=== PATIENT | female | born 2000 | race Caucasian/White ===

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

== ENCOUNTER 2021-05-04 07:10 | Emergency (ER) | payer BC ==
[2021-05-04 07:17] VITALS: RESP 18
--- NOTE | 2021-05-04 07:40 | ED ---
General Adult HPI - General Chief complaint: Abdominal Pain Stated complaint: Abd Pain, Vomiting Time Seen by Provider: 05/04/21 07:18 Source: patient Mode of arrival: ambulatory Limitations: no limitations - History of Present Illness Initial comments: Dictation was produced using TalkSession dictation software. please excuse any grammatical, word or spelling errors. Chief Complaint: 21-year-old female presents to the emergency department for abdominal pain History of Present Illness: The 21-year-old female she presents today with se veral months of abdominal pain. Patient has been having frequent episodes of abdominal pain. She states that she does not know of any inciting factors. States that typically it's exacerbated with oral intake but can occur spontaneously. She is scheduled for a HIDA scan next week. She reports that she has significant family history of gallbladder disease in her family. Patient denies any symptoms at this time. She states she gets frequent episodes on a daily basis. States that it's a sharp pain to her periumbilical area that lasts for minutes. She does have accompanying nausea and vomiting. She has not seen a GI doctor in the past. Patient takes oral contraceptives. She is however sexually active. No concerns of sexually transmitted disease. During one of these episodic attack she does have associated vomiting is nonbilious not bloody. She has no fevers. She denies any association of her symptoms with her menstrual cycle. She reports being at [facility] within the last month. She states she had CT and ultrasound images performed found to be negative. She was prescribed omeprazole however has not been compliant with this medication because she feels it is making her worse. The ROS documented in this emergency department record has been reviewed and confirmed by me. Those systems with pertinent positive or negative responses have been documented in the HPI. All other systems are other negative and/or noncontributory. PHYSICAL EXAM: General Impression: Alert and oriented x3, not in acute distress HEENT: Normocephalic atraumatic, extra-ocular movements intact, pupils equal and reactive to light bilaterally, mucous membranes moist. Cardiovascular: Heart regular rate and rhythm Chest: Able to complete full sentences, no retractions, no tachypnea Abdomen: abdomen soft, non-tender, non-distended, no organomegaly Musculoskeletal: Pulses present and equal in all extremities, no peripheral edema Motor: no focal deficits noted Neurological: CN II-XII grossly intact, no focal motor or sensory deficits noted Skin: Intact with no visualized rashes Psych: Normal affect and mood ED course: 21-year-old well-appearing female presents to the emergency d [facility] for persistent episodic abdominal pain that has been ongoing for the last several months. Vital signs upon arrival are within acceptable limits. Patient's well-appearing at bedside. She denies any symptoms currently. Laboratory evaluation obtained. CBC, metabolic panel is unremarkable. Urine is negative. Patient reevaluated at bedside at 9:30 AM found to be in stable medical condition. Patient told that she should follow-up with GI doctor. Patient prescription for Bentyl to try seafood improves her symptoms. Otherwise no high-risk features noted. Patient agreeable discharge. - Related Data Home Medications Medication Instructions Recorded Confirmed FLUoxetine HCL [PROzac] 20 mg PO HS 05/04/21 05/04/21 Norethindrone-E.estradiol-Iron 1 tab PO HS 05/04/21 05/04/21 [Junel Fe 1 mg-20 Mcg Tablet] atenoloL [Tenormin] 25 mg PO DAILY 05/04/21 05/04/21 hydroCHLOROthiazide [Hydrodiuril] 25 mg PO DAILY 05/04/21 05/04/21 ondansetron HCL [Zofran] 8 mg PO DAILY PRN 05/04/21 05/04/21 Previous Rx's Medication Instructions Recorded Dicyclomine [Bentyl] 10 mg PO QID PRN #24 capsule 05/04/21 Allergies Allergy/AdvReac Type Severity Reaction Status Date / Time No Known Allergies Allergy Verified 05/04/21 08:43 Review of Systems ROS Statement: Those systems with pertinent positive or pertinent negative responses have been documented in the HPI. ROS Other: All systems not noted in ROS Statement are negative. Past Medical History Past Medical History: Asthma, Hypertension History of Any Multi-Drug Resistant Organisms: None Reported Additional Past Surgical History / Comment(s): wisdom teeth Past Psychological History: Anxiety, Depression Smoking Status: Never smoker Past Alcohol Use History: Occasional Past Drug Use History: None Reported General Exam Limitations: no limitations Course Vital Signs 05/04/21 05/04/21 07:13 08:51 Temperature 98.8 F Pulse Rate 92 72 Respiratory 18 18 Rate Blood Pressure 135/87 114/78 O2 Sat by Pulse 98 98 Oximetry Medical Decision Making - Lab Data Result diagrams: 05/04/21 07:42 05/04/21 07:42 Lab Results 05/04/21 05/04/21 05/04/21 Range/Units 07:29 07:42 07:42 WBC 7.6 (4.0-11.0) k/uL RBC 4.67 (3.80-5.40) m/uL Hgb 14.0 (11.4-16.0) gm/dL Hct 41.9 (34.0-46.0) % MCV 89.7 (80.0-100.0) fL MCH 30.0 (25.0-35.0) pg MCHC 33.5 (31.0-37.0) g/dL RDW 14.6 (11.5-15.5) % Plt Count 282 (150-450) k/uL MPV 7.2 Neutrophils % 63 % Lymphocytes % 26 % Monocytes % 4 % Eosinophils % 5 % Basophils % 0 % Neutrophils # 4.8 (1.3-7.7) k/uL Lymphocytes # 2.0 (1.0-4.8) k/uL Monocytes # 0.3 (0-1.0) k/uL Eosinophils # 0.4 (0-0.7) k/uL Basophils # 0.0 (0-0.2) k/uL Sodium 137 (137-145) mmol/L Potassium 4.0 (3.5-5.1) mmol/L Chloride 105 (98-107) mmol/L Carbon Dioxide 20 L (22-30) mmol/L Anion Gap 12 mmol/L BUN 14 (7-17) mg/dL Creatinine 0.69 (0.52-1.04) mg/dL Est GFR (CKD-EPI)AfAm >90 (>60 ml/min/1.73 sqM) Est GFR (CKD-EPI)NonAf >90 (>60 ml/min/1.73 sqM) Glucose 107 H (74-99) mg/dL Calcium 9.2 (8.4-10.2) mg/dL Total Bilirubin 0.4 (0.2-1.3) mg/dL AST 28 (14-36) U/L ALT 21 (4-34) U/L Alkaline Phosphatase 66 (38-126) U/L Total Protein 7.4 (6.3-8.2) g/dL Albumin 4.3 (3.5-5.0) g/dL Lipase 63 (23-300) U/L Urine HCG, Qual Not Detected (Not Detectd) Disposition Clinical Impression: Abdominal pain Disposition: HOME SELF-CARE Condition: Good Instructions (If sedation given, give patient instructions): Abdominal Pain (ED) Prescriptions: Dicyclomine [Bentyl] 10 mg PO QID PRN #24 capsule PRN Reason: abdominal spasm Is patient prescribed a controlled substance at d/c from ED?: No Referrals: Marylou King DO [Primary Care Provider] - 1-2 days Taryn Castillo MD [STAFF PHYSICIAN] - 1-2 days
[2021-05-04 07:55] LABS: Basophils % (A) 0 %; Eosinophils # (A) 0.4 k/uL (0-0.7); Eosinophils % (A) 5 %; HCT 41.9 % (34.0-46.0); Lymphocytes % (A) 26 %; MCHC 33.5 g/dL (31.0-37.0); MCV 89.7 fL (80.0-100.0); Mean Platelet Volume 7.2; Monocytes # (A) 0.3 k/uL (0-1.0); Monocytes % (A) 4 %; Neutrophils # (A) 4.8 k/uL (1.3-7.7); Neutrophils % (A) 63 %; Platelet Count 282 k/uL (150-450); RBC 4.67 m/uL (3.80-5.40); RDW 14.6 % (11.5-15.5); WBC 7.6 k/uL (4.0-11.0)
[2021-05-04 08:04] LABS: ALT 21 U/L (4-34); AST 28 U/L (14-36); African American GFR (CKD) >90 (>60 ml/min/1.73 sqM); Albumin 4.3 g/dL (3.5-5.0); Alkaline Phosphatase 66 U/L (38-126); Anion Gap 12 mmol/L; Blood Urea Nitrogen 14 mg/dL (7-17); Calcium 9.2 mg/dL (8.4-10.2); Carbon Dioxide 20 mmol/L (22-30); Chloride 105 mmol/L (98-107); Glucose 107 mg/dL (74-99); Lipase 63 U/L (23-300); Non-African American GFR(CKD) >90 (>60 ml/min/1.73 sqM); Sodium 137 mmol/L (137-145); Total Bilirubin 0.4 mg/dL (0.2-1.3); Total Protein 7.4 g/dL (6.3-8.2)
[2021-05-04 09:36] VITALS: BP 123/84; PULSE 65; TEMP 97.8
== END 2021-05-04 09:34 | disposition home or self-care (01) ==
LOC: EC 07:10
DX: R10.9 Unspecified abdominal pain (principal); R11.2 Nausea with vomiting, unspecified; I10 Essential (primary) hypertension; J45.909 Unspecified asthma, uncomplicated; Z79.899 Other long term (current) drug therapy
CPT/HCPCS: 36415; 80053; 81025; 83690; 85025; 99284

== ENCOUNTER → 2021-05-11 | Outpatient (CLI) | payer BC ==
--- NOTE | 2021-05-11 15:21 | NM ---
EXAMINATION TYPE: NM hepatobiliary w EF DATE OF EXAM: 05/11/2021 COMPARISON: 10/17/2018 INDICATION: Diarrhea generalized abdominal pain TECHNIQUE: After the intravenous administration of 4.26 mCi Tc 99m Mebrofenin hepatobiliary scintigra phy is performed. Images were obtained immediately post injection. FINDINGS: There is prompt uptake and excretion of radiotracer by the liver. Extrahepatic ducts are identified at 6 minutes. The gallbladder is visualized within 12 minutes. Small bowel activity is noted within 8 minutes. At one hour 8 ounces of oral ensure plus is given to mimic CCK and gallbladder ejection fraction is c alculated at 82 %, which is elevated. (Normal >35% and <80%.). Correlate for biliary hyperkinesia. IMPRESSION: 1. Clinical correlation for biliary hyperkinesia is recommended. 2. No obstruction evident
== END | disposition home or self-care (01) ==
LOC: RADNMMAIN 12:59
PROVIDERS: ATTEND Physician Assistant Medical
DX: R19.7 Diarrhea, unspecified (principal); R10.84 Generalized abdominal pain
CPT/HCPCS: 78226; A9537

== ENCOUNTER → 2022-11-30 | Day surgery (SDC) | payer BC ==
--- NOTE | 2022-12-13 08:03 | USB ---
Pathology Description: Location: 8 o'clock. Needle Type: Mammotome Cores: 5 Skin Nicks: 1 Gauge: 13 The procedure of ultrasound guided core biopsy was explained to the patient. Benefits, alternatives, and risks were discussed. An informed consent was then obtained. A timeout was performed. The patient was placed in supine positioning for imaging and for the procedure. The overlying skin was prepped and draped in usual sterile fashion. Lidocaine was used as anesthetic into the skin and subcutaneous tissue up to area of concern in the right breast. A small skin sai was made with surgical scalpel. Under ultrasound guidance, a 12-gauge vacuum assisted biopsy gun device was used to obtain 5 core samples. A biopsy clip was left in lesion. Hydromark core butterfly marker was placed. The patient tolerated the procedure well without any immediate complication. The patient was kept in the radiology department for short stay after the procedure and then discharged home in stable condition. Postprocedure mammogram: The patient was transferred to mammography for physician ordered post procedure mammogram for clip placement verification. Impression: Successful ultrasound guided core biopsy of area of concern in the right breast, full pathology results to follow. Recommendations: 1. Recommendations are pending pathology results. Pathology Results: Result: Benign, Fibroadenoma. RIGHT BREAST, EIGHT O'CLOCK, ULTRASOUND GUIDED NEEDLE CORE BIOPSY: Fibroadenoma. Overall Assessment: Benign Management: Diagnostic Breast Ultrasound of the right breast in 6 months. Electronically signed and approved by: Wesley Raphael D.O. Radiologis
== END ==
LOC: RADUSWWP 07:48
PROVIDERS: ATTEND Surgery
DX: D24.1 Benign neoplasm of right breast (principal)
CPT/HCPCS: 88305; 19083; A4648

== ENCOUNTER → 2022-12-16 | Outpatient (CLI) | payer BC ==
[2022-12-16 09:26] VITALS: BP 129/84; PULSE 73; RESP 16; TEMP 97.9
--- NOTE | 2022-12-16 09:52 | P.GSHP ---
History of Present Illness H&P Date: 12/16/22 Frances is a 22 year old female seen in consultation for Dr. King regarding a fibroadenoma in her right breast. Patient states 2 years ago she felt a lump in her right breast. The patient states that his increased in size. It is not painful. She underwent a core biopsy of the 1.5 cm lesion of the right breast on and pathology was consistent with a fibroadenoma. She has not had any other breast imaging performed. She does not feel any other lumps masses or nodules of concern in her breast. She has not had any surgery on her breast. She's not had any recent trauma or infection of the breast. He does have a history of hidradenitis under both breasts and in the axilla. This is also present in the groin area. The nodule in the breast is causing distress for the patient as it is clearly palpable and she feels it has increased in size. Caffeine: pop several times/week nictine: none chocolate: occasional BCP: currently on them used for about 9 years Family history: maternal grandmother: breast cancer maternal aunt: breast cancer 2 paternal great aunts: breast cancer maternal grandfather: skin cancer paternal grandfather: skin cancer maternal great aunt: ovarian cancer Hormonal History: menarche: 12 G1A1 periods regular; LMP: last week Past surgical history: Cholecystectomy Was taken to remove Medical history: HTN pre-daibetic anxiety/depression asthma Hidradenitis supratevia Social history: Nicotine: Negative Alcohol: Periodically Drugs: Marijuana dailyh - Constitutional Constitutional: Denies chills, Denies fever - EENT Eyes: denies blurred vision, denies pain Ears: deny: decreased hearing, tinnitus Ears, nose, mouth and throat: Denies headache, Denies sore throat - Breasts Breasts: bilateral: as per HPI - Cardiovascular Cardiovascular: Denies chest pain, Denies shortness of breath - Respiratory Respiratory: Denies cough, Denies 7 - Gastrointestinal Gastrointestinal: Denies abdominal pain, Denies diarrhea, Denies nausea, Denies vomiting - Genitourinary (Female) Genitourinary: Denies dysuria, Denies hematuria - Menstruation Menstruation: Reports period normal - Musculoskeletal Musculoskeletal: Denies myalgias - Integumentary Integumentary: Denies pruritus, Denies rash - Neurological Neurological: Denies numbness, Denies weakness - Psychiatric Psychiatric: Reports anxiety, Reports depression - Endocrine Endocrine: Denies fatigue, Denies weight change - Hematologic/Lymphatic Comment: none - Allergic/Immunologic Allergic/Immunologic: Reports seasonal allergies Past Medical History Past Medical History: Asthma, Hypertension Additional Past Medical History / Comment(s): pre-diabetic History of Any Multi-Drug Resistant Organisms: None Reported Past Surgical History: Cholecystectomy Additional Past Surgical History / Comment(s): wisdom teeth Past Anesthesia/Blood Transfusion Reactions: No Reported Reaction Past Psychological History: Anxiety, Depression Smoking Status: Never smoker Past Alcohol Use History: Occasional Past Drug Use History: Marijuana Medications and Allergies Home Medications Medication Instructions Recorded Confirmed Type atenoloL [Tenormin] 50 mg PO DAILY 05/04/21 12/16/22 History norethindrone-e.estradioL-iron 1 tab PO HS 05/04/21 12/16/22 History [Junel Fe 1 mg-20 Mcg Tablet] Famotidine [Pepcid] 10 mg PO DAILY 11/17/22 12/16/22 History Semaglutide [Ozempic] 0.25 mg SQ WEEKLY 11/17/22 12/16/22 History PARoxetine [Paxil] 20 mg PO DAILY 12/16/22 12/16/22 History Allergies Allergy/AdvReac Type Severity Reaction Status Date / Time No Known Allergies Allergy Verified 12/16/22 09:21 Surgical - Exam Vital Signs Temp Pulse Resp BP Pulse Ox 97.9 F 73 16 129/84 97 12/16/22 09:22 12/16/22 09:22 12/16/22 09:22 12/16/22 09:22 12/16/22 09:22 - General no distress - Eyes normal ocular movement - ENT no hearing loss - Neck trachea midline - Respiratory normal respiratory effort - Cardiovascular Rhythm: regular Heart Sounds: normal: S1, S2 - Abdomen Abdomen: soft, non tender, no guarding, no rigid, no rebound - Integumentary normal turgor - Neurologic no disoriented, no combative - Musculoskeletal normal gait, normal posture - Psychiatric oriented to time, oriented to person, oriented to place, speech is normal, memory intact Breast Exam: BRA: 38D Inspection: Bilateral grade 2/3 ptosis Palpation: Right breast: Multiple positional exam fibrocystic changes, hydroadenitis in the axilla and over the lateral aspect of the breast, approximately 1.2 cm palpable fibroadenoma in the periareolar region at 9:00 Right axilla: Changes of hidradenitis no adenopathy of concern Left breast: Multiple positional exam fibrocystic changes no dominant masses or nodules of concern Left axilla: Hidradenitis in the axilla no dominant masses or nodules of concern Results Ultrasound reviewed Assessment and Plan Assessment: Impression: HTN pre-daibetic anxiety/depression asthma Hidradenitis supratevia Symptomatically breast fibroadenoma Plan: Removal of symptomatic palpable right breast fibroadenoma Cc: Chelly Bautista
== END ==
LOC: WWCWWP 08:40
PROVIDERS: ATTEND Surgery
DX: D24.1 Benign neoplasm of right breast (principal); F32.A Depression, unspecified; F41.9 Anxiety disorder, unspecified; I10 Essential (primary) hypertension; J45.909 Unspecified asthma, uncomplicated; L73.2 Hidradenitis suppurativa; Z79.899 Other long term (current) drug therapy; Z80.3 Family history of malignant neoplasm of breast; Z90.49 Acquired absence of other specified parts of digestive tract; R73.09 Other abnormal glucose

== ENCOUNTER → 2023-03-29 | Outpatient (CLI) | payer BC ==
[2023-03-29 12:29] VITALS: BP 116/80; PULSE 74; RESP 18; TEMP 97.9
--- NOTE | 2023-03-29 12:39 | P.PN ---
Subjective Progress Note Date: 03/29/23 Principal diagnosis: right breast fibroadenoma History of Present Illness H&P Date: 12/16/22 Frances is a 23 year old female seen in consultation for Dr. King regarding a fibroadenoma in her right breast. Patient states 2 years ago she felt a lump in her right breast. The patient states that his increased in size. It is not painful. She underwent a core biopsy of the 1.5 cm lesion of the right breast on and pathology was consistent with a fibroadenoma. She has not had any other breast imaging performed. She does not feel any other lumps masses or nodules of concern in her breast. She has not had any surgery on her breast. She's not had any recent trauma or infection of the breast. She does have a history of hidradenitis under both breasts and in the axilla. This is also present in the groin area. The nodule in the breast is causing distress for the patient as it is clearly palpable and she feels it has increased in size. Caffeine: pop several times/week nictine: none chocolate: occasional BCP: currently on them used for about 9 years Family history: maternal grandmother: breast cancer maternal aunt: breast cancer 2 paternal great aunts: breast cancer maternal grandfather: skin cancer paternal grandfather: skin cancer maternal great aunt: ovarian cancer Hormonal History: menarche: 12 G1A1 periods regular; LMP: last week Past surgical history: Cholecystectomy Was taken to remove Medical history: HTN pre-daibetic anxiety/depression asthma Hidradenitis supratevia Social history: Nicotine: Negative Alcohol: Periodically Drugs: Marijuana dailyh - Constitutional Constitutional: Denies chills, Denies fever - EENT +++Eyes: denies blurred vision, denies pain Ears: deny: decreased hearing, tinnitus Ears, nose, mouth and throat: Denies headache, Denies sore throat - Breasts Breasts: bilateral: as per HPI - Cardiovascular Cardiovascular: Denies chest pain, Denies shortness of breath - Respiratory Respiratory: Denies cough - Gastrointestinal Gastrointestinal: Denies abdominal pain, Denies diarrhea, Denies nausea, Denies vomiting - Genitourinary (Female) Genitourinary: Denies dysuria, Denies hematuria - Menstruation Menstruation: Reports period normal - Musculoskeletal Musculoskeletal: Denies myalgias - Integumentary Integumentary: Denies pruritus, Denies rash - Neurological Neurological: Denies numbness, Denies weakness - Psychiatric Psychiatric: Reports anxiety, Reports depression - Endocrine Endocrine: Denies fatigue, Denies weight change - Hematologic/Lymphatic Comment: none - Allergic/Immunologic Allergic/Immunologic: Reports seasonal allergies Past Medical History Past Medical History: Asthma, Hypertension Additional Past Medical History / Comment(s): pre-diabetic History of Any Multi-Drug Resistant Organisms: None Reported Past Surgical History: Cholecystectomy Additional Past Surgical History / Comment(s): wisdom teeth Past Anesthesia/Blood Transfusion Reactions: No Reported Reaction Past Psychological History: Anxiety, Depression Smoking Status: Never smoker Past Alcohol Use History: Occasional Past Drug Use History: Marijuana Medications and Allergies Home Medications Medication Instructions Recorded Confirmed Type atenoloL [Tenormin] 50 mg PO DAILY 05/04/21 12/16/22 History norethindrone-e.estradioL-iron 1 tab PO HS 05/04/21 12/16/22 History [Junel Fe 1 mg-20 Mcg Tablet] Famotidine [Pepcid] 10 mg PO DAILY 11/17/22 12/16/22 History Semaglutide [Ozempic] 0.25 mg SQ WEEKLY 11/17/22 12/16/22 History PARoxetine [Paxil] 20 mg PO DAILY 12/16/22 12/16/22 History Allergies Allergy/AdvReac Type Severity Reaction Status Date / Time No Known Allergies Allergy Verified 12/16/22 09:21 - Objective - Vital Signs Vital signs: Vital Signs Temp 97.9 F 03/29/23 12:24 Pulse 74 03/29/23 12:24 Resp 18 03/29/23 12:24 BP 116/80 03/29/23 12:24 Pulse Ox 98 03/29/23 12:24 FiO2 Intake & Output 03/28/23 03/29/23 03/29/23 18:59 06:59 18:59 Weight 111.13 kg - Constitutional General appearance: Present: cooperative - EENT Eyes: Present: EOMI ENT: Present: hearing grossly normal - Neck Neck: Present: normal ROM - Respiratory Respiratory: bilateral: CTA - Cardiovascular Heart sounds: normal: S1, S2 - Integumentary Integumentary: Present: normal turgor - Musculoskeletal Musculoskeletal: Present: gait normal - Psychiatric Psychiatric: Present: A&O x's 3, appropriate affect, intact judgment & insight - Additional findings Additional findings: Breast Exam: BRA: 38D Inspection: Bilateral grade 2/3 ptosis Palpation: Right breast: Multiple positional exam fibrocystic changes, hydroadenitis in the axilla and over the lateral aspect of the breast, approximately 1.2 cm palpable fibroadenoma in the periareolar region at 9:00 Right axilla: Changes of hidradenitis no adenopathy of concern Left breast: Multiple positional exam fibrocystic changes no dominant masses or nodules of concern Left axilla: Hidradenitis in the axilla no dominant masses or nodules of concern Assessment and Plan Assessment: Impression: HTN pre-daibetic anxiety/depression asthma Hidradenitis supratevia Symptomatic right breast fibroadenoma Plan: Removal of symptomatic palpable right breast fibroadenoma Cc: Chelly Bautista
== END ==
LOC: WWCWWP 12:17
PROVIDERS: ATTEND Surgery
DX: D24.1 Benign neoplasm of right breast (principal); F32.A Depression, unspecified; J45.909 Unspecified asthma, uncomplicated; L73.2 Hidradenitis suppurativa; E11.9 Type 2 diabetes mellitus without complications; F41.9 Anxiety disorder, unspecified; Z80.3 Family history of malignant neoplasm of breast

== ENCOUNTER → 2023-04-04 | Day surgery (SDC) | payer BC ==
[2023-03-29 17:54] VITALS: BMI 43.4
[~2023-04-04] MED LIST: DEXAMETHASONE SOD PHOSPHATE 4 MG/ML 1 ML VIAL IV ONE; HEPARIN SODIUM,PORCINE/PF 5,000 UNIT/0.5 ML SYRINGE SQ PRN; HYDROmorphone (PF) 1 MG/ML ONE; HYDROmorphone 0.5 MG/0.5 ML SYRINGE IVP PRN; LACTATED RINGERS 1,000 ML IV ONE; LACTATED RINGERS 1,000 ML IV SCH; LIDOCAINE 2% INJ 20 MG/ML (2 ML VIAL) ONE; MIDAZOLAM 2 MG/2 ML VIAL IV PRN; MIDAZOLAM 2 MG/2 ML VIAL ONE; ONDANSETRON 4 MG/2 ML VIAL IVP ONE; PROPOFOL 10 MG/ML 20 ML VIAL IV ONE; SCOPOLAMINE 1 MG/72 HR PATCH TRANSDERM ONE; SUCCINYLCHOLINE CHLORIDE 200 MG/10 ML VIAL IV ONE; fentaNYL (PF) 50 MCG/ML 2 ML AMP ONE
[2023-04-04 07:48] LABS: Glucose,Whole Blood 108 mg/dL (70-110)
--- NOTE | 2023-04-04 09:24 | P.OP ---
Date of Procedure: 04/04/23 Preoperative Diagnosis: Symptomatic right breast fibroadenoma Postoperative Diagnosis: Same Procedure(s) Performed: Excision of palpable right breast fibroadenoma Anesthesia: SILVANOA Surgeon: Shirin Cain Estimated Blood Loss (ml): 3 IV fluids (ml): 300 Pathology: other (right breast lesion/fibroadenoma) Condition: stable Disposition: same day Indications for Procedure: Symptomatic right breast fibroadenoma Operative Findings: Right breast fibroadenoma Description of Procedure: The patient was brought to the operative suite and following induction of anesthesia the right breast was prepped and draped in a sterile fashion. Circumareolar incision was made and carried down to the palpable abnormality. Wide excision was performed. The fibroadenoma was approximately 1-1/2 cm in size. Following this the cavity was well irrigated. The area was marked using a titanium clip. The tissues were closed using 3-0 Vicryl suture. Subcutaneous tissue was closed using 3-0 Vicryl suture. The skin was closed using 4-0 Monocryl. Steri-Strips were applied. The patient tolerated the procedure in stable condition. All instrument and sponge counts were correct at the end of the case. The specimen was painted for orientation.
--- NOTE | 2023-04-04 09:26 | P.DS ---
Providers Attending physician: Shirin Cain Primary care physician: Marylou King Plan - Discharge Summary Discharge Rx Participant: Yes New Discharge Prescriptions: No Action atenoloL [Tenormin] 50 mg PO DAILY PARoxetine [Paxil] 20 mg PO DAILY Famotidine [Pepcid] 10 mg PO DAILY Discharge Medication List atenoloL [Tenormin] 50 mg PO DAILY 05/04/21 [History] Famotidine [Pepcid] 10 mg PO DAILY 11/17/22 [History] PARoxetine [Paxil] 20 mg PO DAILY 12/16/22 [History] Follow up Appointment(s)/Referral(s): Shirin Cain MD [STAFF PHYSICIAN] - 1 Week Patient Instructions/Handouts: *Surgery [facility] - (Anesthesia) Discharge Instructions Outpatient Surgery, *Surgery [facility] - Scopalamine Patch Instructions Activity/Diet/Wound Care/Special Instructions: do not drive for 24 hours from discharge or if taking narcotic pain medicine may shower after 48 hours wear bra at all times Discharge Disposition: HOME SELF-CARE
[2023-04-04 09:35] VITALS: TEMP 97
[2023-04-04 09:45] VITALS: RESP 14
[2023-04-04 10:44] VITALS: BP 125/85; PULSE 110
== END | disposition home or self-care (01) ==
LOC: OR 07:14
PROVIDERS: ATTEND Surgery
DX: D24.1 Benign neoplasm of right breast (principal); I10 Essential (primary) hypertension; K21.9 Gastro-esophageal reflux disease without esophagitis; R73.03 Prediabetes; J45.909 Unspecified asthma, uncomplicated; F41.9 Anxiety disorder, unspecified; F32.A Depression, unspecified; Z90.49 Acquired absence of other specified parts of digestive tract; Z80.3 Family history of malignant neoplasm of breast; Z80.41 Family history of malignant neoplasm of ovary; F12.90 Cannabis use, unspecified, uncomplicated
CPT/HCPCS: 81025; 88305; 19120; J2250; J0330; J1100; J0690; J2405; J3010; J1170; J2704; J1644; J2001

== ENCOUNTER → 2023-04-13 | Outpatient (CLI) | payer BC ==
--- NOTE | 2023-04-13 14:19 | P.PN ---
Progress Note - Text Progress Note Date: 04/13/23 The patient is status is status post resection of fibroadenoma on 04-04-23. She has done well post op. Examination: Incision: Clean and dry Impression: Status post excision of fibroadenoma Plan: Follow up in 6 months for repeat right breast ultrasound CC: Chelly Bautista
== END ==
LOC: WWCWWP 13:58
PROVIDERS: ATTEND Surgery
DX: Z04.89 Encounter for examination and observation for other specified reasons (principal); Z86.018 Personal history of other benign neoplasm

== ENCOUNTER → 2023-07-10 | Outpatient (CLI) | payer BC | END | disposition home or self-care (01) | LOC: LABWHC1 10:21 | PROVIDERS: ATTEND Obstetrics & Gynecology Obstetrics | DX: O20.0 Threatened abortion (principal); Z3A.00 Weeks of gestation of pregnancy not specified | CPT/HCPCS: 36415; 84702; 86850; 86900; 86901 ==

== ENCOUNTER → 2023-07-12 | Outpatient (CLI) | payer BC | END | disposition home or self-care (01) | LOC: LABWHC1 10:52 | PROVIDERS: ATTEND Obstetrics & Gynecology Obstetrics | DX: O20.9 Hemorrhage in early pregnancy, unspecified (principal); O20.0 Threatened abortion; Z3A.00 Weeks of gestation of pregnancy not specified | CPT/HCPCS: 36415; 84144; 84702 ==

== ENCOUNTER 2023-08-01 06:57 | Emergency (ER) | payer BC ==
--- NOTE | 2023-08-01 07:02 | ED ---
General Adult HPI - General Stated complaint: 8 wk preg N/V Vaginal Bleeding Time Seen by Provider: 08/01/23 06:59 Source: patient, RN notes reviewed Mode of arrival: ambulatory Limitations: no limitations - History of Present Illness Initial comments: This a 23-year-old female presents emergency Department with chief complaint vaginal bleeding early . Patient states that she is also having associated nausea vomiting. Patient states she feels dehydrated. Patient st ates her bleeding started late but is noted to have some clots now. Patient is A1. Patient states she is seen Dr. Fonseca. - Related Data Home Medications Medication Instructions Recorded Confirmed atenoloL [Tenormin] 50 mg PO DAILY 05/04/21 03/29/23 Famotidine [Pepcid] 10 mg PO DAILY 11/17/22 03/29/23 PARoxetine [Paxil] 20 mg PO DAILY 12/16/22 03/29/23 Allergies Allergy/AdvReac Type Severity Reaction Status Date / Time No Known Allergies Allergy Verified 08/01/23 07:08 Review of Systems ROS Statement: Those systems with pertinent positive or pertinent negative responses have been documented in the HPI. ROS Other: All systems not noted in ROS Statement are negative. Past Medical History Past Medical History: Asthma, Hypertension Additional Past Medical History / Comment(s): pre-diabetic History of Any Multi-Drug Resistant Organisms: None Reported Past Surgical History: Cholecystectomy Additional Past Surgical History / Comment(s): wisdom teeth Past Anesthesia/Blood Transfusion Reactions: No Reported Reaction Smoking Status: Never smoker General Exam - General Exam Comments Initial Comments: Visual Physical Exam Vital signs reviewed General: Well-appearing, nontoxic, no acute distress. Head: Normocephalic, atraumatic Eyes: PERRLA, EOMI ENT: Airway patent Chest: Nonlabored breathing Skin: No visual rash, normal skin tone Neuro: Alert and oriented 3 Musculoskeletal: No gross abnormalities Limitations: no limitations General appearance: alert, in no apparent distress Head exam: Present: atraumatic, normocephalic, normal inspection Eye exam: Present: normal appearance, PERRL, EOMI. Absent: scleral icterus, conjunctival injection, periorbital swelling ENT exam: Present: normal exam, normal oropharynx, mucous membranes moist Neck exam: Present: normal inspection, full ROM. Absent: tenderness, meningismus, lymphadenopathy Respiratory exam: Present: normal lung sounds bilaterally. Absent: respiratory distress, wheezes, rales, rhonchi, stridor Cardiovascular Exam: Present: regular rate, normal rhythm, normal heart sounds. Absent: systolic murmur, diastolic murmur, rubs, gallop, clicks GI/Abdominal exam: Present: soft, tenderness, normal bowel sounds. Absent: distended, guarding, rebound, rigid Course Vital Signs 08/01/23 08/01/23 07:06 08:47 Temperature 98.5 F Pulse Rate 97 79 Respiratory 18 18 Rate Blood Pressure 135/90 121/75 O2 Sat by Pulse 99 98 Oximetry Medical Decision Making - Medical Decision Making I completed the quick note portion of this chart signed Beau Holt PA-C Was pt. sent in by a medical professional or institution ([facility], PREPPER, urgent care, hospital, or custodial...) When possible be specific @ -No Did you speak to anyone other than the patient for history (EMS, parent, family, police, friend...)? What history was obtained from this source @ -No Did you review nursing and triage notes (agree or disagree)? Why? @ -I reviewed and agree with nursing and triage notes Were old charts reviewed (outside hosp., previous admission, EMS record, old EKG, old radiological studies, urgent care reports/EKG's, custodial records)? Report findings @ -No old charts were reviewed Differential Diagnosis (chest pain, altered mental status, abdominal pain women, abdominal pain men, vaginal bleeding, weakness, fever, dyspnea, syncope, headache, dizziness, GI bleed, back pain, seizure, CVA, palpatations, mental health, musculoskeletal)? @ -Differential Vaginal Bleeding: Spontaneous , threatened , molar , ectopic , bloody show, incompetent cervix, abruptioplacenta, placenta previa, uterine rupture, dysfunctional uterine bleeding, hemorrhage, uterine fibroids, this is not meant to be an all-inclusive list.l EKG interpreted by me (3pts min.). @ -None X-rays interpreted by me (1pt min.). @ -None done CT interpreted by me (1pt min.). @ -None done U/S interpreted by me (1pt. min.). @ -Ultrasound shows intrauterine 8 weeks 1 day with heart rate of 172 What testing was considered but not performed or refused? (CT, X-rays, U/S, labs)? Why? @ -None What meds were considered but not given or refused? Why? @ -None Did you discuss the management of the patient with other professionals (professionals i.e. , PA, PREPPER, lab, RT, psych nurse, social media project manager, scuba instructor, teacher, student officer, residential case manager)? Give summary @ -No Was smoking cessation discussed for >3mins.? @ -No Was critical care preformed (if so, how long)? @ -No Were there social determinants of health that impacted care today? How? (Homelessness, low income, unemployed, alcoholism, drug addiction, transportation, low edu. Level, literacy, decrease access to med. care, skilled nursing, rehab)? @ -No Was there de-escalation of care discussed even if they declined (Discuss DNR or withdrawal of care, Hospice)? DNR status @ -No What co-morbidities impacted this encounter? (DM, HTN, Smoking, COPD, CAD, Cancer, CVA, ARF, Chemo, Hep., AIDS, mental health diagnosis, sleep apnea, morbid obesity)? @ -None Was patient admitted / discharged? Hospital course, mention meds given and route, prescriptions, significant lab abnormalities, going to OR and other pertinent info. 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 @ -No Drug Therapy requiring intensive monitoring for toxicity (Heparin, Nitro, Insulin, Cardizem)? @ -No Were any procedures done? @ -No Diagnosis/symptom? @ -Vaginal bleeding , threatened miscarriage Acute, or Chronic, or Acute on Chronic? @ -[Acute Uncomplicated (without systemic symptoms) or Complicated (systemic symptoms)? @ -[Uncomplicated Side effects of treatment? @ -No Exacerbation, Progression, or Severe Exacerbation? @ -No Poses a threat to life or bodily function? How? (Chest pain, [place], [place], pneumonia, PE, COPD, DKA, ARF, appy, cholecystitis, CVA, Diverticulitis, Homicidal, Suicidal, threat to staff... and all critical care pts) @ -No - Lab Data Result diagrams: 08/01/23 08:44 08/01/23 08:44 Lab Results 08/01/23 08/01/23 08/01/23 Range/Units 08:44 08:44 08:44 WBC 10.8 H (3.8-10.6) k/uL RBC 4.49 (3.80-5.40) m/uL Hgb 13.2 (11.4-16.0) gm/dL Hct 38.6 (34.0-46.0) % MCV 86.2 (80.0-100.0) fL MCH 29.4 (25.0-35.0) pg MCHC 34.1 (31.0-37.0) g/dL RDW 13.2 (11.5-15.5) % Plt Count 314 (150-450) k/uL MPV 6.9 Neutrophils % 79 % Lymphocytes % 15 % Monocytes % 3 % Eosinophils % 3 % Basophils % 0 % Neutrophils # 8.5 H (1.3-7.7) k/uL Lymphocytes # 1.6 (1.0-4.8) k/uL Monocytes # 0.3 (0-1.0) k/uL Eosinophils # 0.3 (0-0.7) k/uL Basophils # 0.0 (0-0.2) k/uL Sodium 134 L (137-145) mmol/L Potassium 4.0 (3.5-5.1) mmol/L Chloride 104 (98-107) mmol/L Carbon Dioxide 19 L (22-30) mmol/L Anion Gap 11 mmol/L BUN 9 (7-17) mg/dL Creatinine 0.46 L (0.52-1.04) mg/dL Est GFR (CKD-EPI)AfAm >90 (>60 ml/min/1.73 sqM) Est GFR (CKD-EPI)NonAf >90 (>60 ml/min/1.73 sqM) Glucose 94 (74-99) mg/dL Calcium 9.4 (8.4-10.2) mg/dL Total Bilirubin 0.3 (0.2-1.3) mg/dL AST 22 (14-36) U/L ALT 18 (4-34) U/L Alkaline Phosphatase 62 (38-126) U/L Total Protein 7.3 (6.3-8.2) g/dL Albumin 4.0 (3.5-5.0) g/dL Urine Color Yellow Urine Appearance Cloudy H (Clear) Urine pH 5.5 (5.0-8.0) Ur Specific [place] 1.024 (1.001-1.035) Urine Protein Trace H (Negative) Urine Glucose (UA) Negative (Negative) Urine Ketones Negative (Negative) Urine Blood Large H (Negative) Urine Nitrite Negative (Negative) Urine Bilirubin Negative (Negative) Urine Urobilinogen <2.0 (<2.0) mg/dL Ur Leukocyte Esterase Large H (Negative) Urine RBC 20 H (0-5) /hpf Urine WBC 11 H (0-5) /hpf Ur Squamous Epith Cells 11 H (0-4) /hpf Urine Bacteria Rare H (None) /hpf Urine Mucus Few H (None) /hpf Disposition Clinical Impression: Vaginal bleeding in Disposition: HOME SELF-CARE Condition: Stable Instructions (If sedation given, give patient instructions): Threatened Mis carriage (ED) Additional Instructions: Please return to the Emergency Department if symptoms worsen or any other concerns. Is patient prescribed a controlled substance at d/c from ED?: No Referrals: Marylou King DO [Primary Care Provider] - 1-2 days Maisha Fonseca DO [Doctor of Osteopathic Medicine] - 1-2 days Time of Disposition: 10:05
[2023-08-01] MEDS ORDERED: ONDANSETRON 4 MG/2 ML VIAL IVP STA (07:17)
[2023-08-01] MEDS ORDERED: SODIUM CHLORIDE 0.9% 1,000 ML IV ONE (07:17)
[2023-08-01] MEDS ORDERED: SODIUM CHLORIDE 0.9% 500 ML 500 ML IV ONE (07:17)
[2023-08-01 08:57] LABS: Basophils % (A) 0 %; Eosinophils # (A) 0.3 k/uL (0-0.7); Eosinophils % (A) 3 %; HCT 38.6 % (34.0-46.0); HGB 13.2 gm/dL (11.4-16.0); Lymphocytes # (A) 1.6 k/uL (1.0-4.8); Lymphocytes % (A) 15 %; MCH 29.4 pg (25.0-35.0); MCHC 34.1 g/dL (31.0-37.0); MCV 86.2 fL (80.0-100.0); Mean Platelet Volume 6.9; Monocytes # (A) 0.3 k/uL (0-1.0); Monocytes % (A) 3 %; Neutrophils # (A) 8.5 k/uL (1.3-7.7); Neutrophils % (A) 79 %; Platelet Count 314 k/uL (150-450); RBC 4.49 m/uL (3.80-5.40); RDW 13.2 % (11.5-15.5); WBC 10.8 k/uL (3.8-10.6)
[2023-08-01 09:06] LABS: Appearance,Urine Cloudy (Clear); Bacteria,Urine Rare /hpf; Bilirubin,Urine Negative (Negative); Blood,Urine Large (Negative); Color,Urine Yellow; Glucose,Urine (UA) Negative (Negative); Ketones,Urine Negative (Negative); Leukocyte Esterase,Urine Large (Negative); Mucus,Urine Few /hpf; Nitrite,Urine Negative (Negative); PH, Urine 5.5 (5.0-8.0); Protein,Urine Trace (Negative); RBC,Urine 20 /hpf (0-5); Specific Gravity,Urine 1.024 (1.001-1.035); Squamous Epithelial Cell,Urine 11 /hpf (0-4); Urobilinogen,Urine <2.0 mg/dL (<2.0); WBC,Urine 11 /hpf (0-5)
[2023-08-01 09:12] LABS: ALT 18 U/L (4-34); AST 22 U/L (14-36); African American GFR (CKD) >90 (>60 ml/min/1.73 sqM); Alkaline Phosphatase 62 U/L (38-126); Anion Gap 11 mmol/L; Blood Urea Nitrogen 9 mg/dL (7-17); Calcium 9.4 mg/dL (8.4-10.2); Carbon Dioxide 19 mmol/L (22-30); Chloride 104 mmol/L (98-107); Glucose 94 mg/dL (74-99); Non-African American GFR(CKD) >90 (>60 ml/min/1.73 sqM); Sodium 134 mmol/L (137-145); Total Bilirubin 0.3 mg/dL (0.2-1.3); Total Protein 7.3 g/dL (6.3-8.2)
--- NOTE | 2023-08-01 09:13 | US ---
EXAMINATION TYPE: Transabdominal DATE OF EXAM: 08/01/2023 8:28 AM COMPARISON: NONE CLINICAL INDICATION: Female, 23 years old with history of pain; Patient states spotting and cramping. EXAM PERFORMED: Transabdominal (TA) EXAM MEASUREMENTS: GESTATIONAL AGE / DATING Physician Established: Not yet established Dates by LMP: (9 weeks/3 days) EDC: 03/02/2024 Dates by First Scan: (8 weeks/0 days) EDC: 03/12/2024 Dates by Current Scan for: (8 weeks/1 days) EDC: 03/11/2024 MATERNAL ANATOMY Uterus: 8.8 x 6.3 x 5.1 cm Right Ovary: 3.5 x 1.9 x 2.5 cm Left Ovary: 4.0 x 2.8 x 2.3 cm Post CDS / Adnexa: no free fluid Presence of free fluid: No Presence of corpus luteal cyst: right ovarian hypoechoic lesion = 2.4 x 1.7 x 2.5 cm Presence of subchorionic bleed: no GESTATION / SURVEY CRL: 1.7 cm (8 weeks/1 days) MSD: seen, not measured Yolk Sac (normal less than 6mm): 2.7 mm Heart Rate: 172 bpm Rhythm: Normal IUP: Viable IUP Date of LMP: 05/27/2023, Beta HcG (if available): Not available at this time IMPRESSION: 1. Single intrauterine gestation estimated at 8 weeks 1 day gestation based on crown-rump length. Car diac activity measures 172 bpm.
[2023-08-01 10:32] VITALS: BP 131/82; PULSE 66; RESP 20; TEMP 98.4
== END 2023-08-01 10:25 | disposition home or self-care (01) ==
LOC: EC 06:57
DX: O20.0 Threatened abortion (principal); O99.511 Diseases of the respiratory system complicating pregnancy, first trimester; J45.909 Unspecified asthma, uncomplicated; O16.1 Unspecified maternal hypertension, first trimester; Z79.899 Other long term (current) drug therapy; Z3A.08 8 weeks gestation of pregnancy
CPT/HCPCS: 36415; 80053; 85025; 81001; 84702; 76801; 99284; 96374; 96361; J2405

== ENCOUNTER → 2023-08-03 | Outpatient (CLI) | payer BC | END | disposition home or self-care (01) | LOC: LABWHC1 07:20 | PROVIDERS: ATTEND Physician Assistant | DX: O20.0 Threatened abortion (principal); Z3A.00 Weeks of gestation of pregnancy not specified | CPT/HCPCS: 36415; 84702 ==

== ENCOUNTER 2023-08-16 20:08 | Emergency (ER) | payer BC ==
[2023-08-16 20:28] VITALS: RESP 18
--- NOTE | 2023-08-16 20:44 | ED ---
Female Urogenital HPI - General Chief complaint: Vaginal Bleeding Stated complaint: 10 weeks preg/vag bleeding Time Seen by Provider: 08/16/23 20:32 Source: patient Mode of arrival: ambulatory Limitations: no limitations - History of Present Illness Initial comments: A1 23-year-old female presenting to the ED with a chief complaint of vaginal bleeding. Patient is approximately 10 weeks . Has had ultrasound showing an IUP. Follows with Dr. Fonseca. She states today when she returned from work noticed that she had blood in her pants. Since then, reports bleeding has decreased. Has not gone through any pads or tampons since onset of bl eeding. No abdominal pain. No recent trauma or injury. No urinary symptoms. No other complaints. - Related Data Home Medications Medication Instructions Recorded Confirmed atenoloL [Tenormin] 50 mg PO DAILY 05/04/21 03/29/23 Famotidine [Pepcid] 10 mg PO DAILY 11/17/22 03/29/23 PARoxetine [Paxil] 20 mg PO DAILY 12/16/22 03/29/23 Previous Rx's Medication Instructions Recorded Ondansetron Odt [Zofran Odt] 4 mg PO Q8HR PRN #10 tab 08/01/23 Allergies Allergy/AdvReac Type Severity Reaction Status Date / Time No Known Allergies Allergy Verified 08/16/23 20:13 Review of Systems ROS Statement: Those systems with pertinent positive or pertinent negative responses have been documented in the HPI. ROS Other: All systems not noted in ROS Statement are negative. Past Medical History Past Medical History: Asthma, Hypertension Additional Past Medical History / Comment(s): pre-diabetic History of Any Multi-Drug Resistant Organisms: None Reported Past Surgical History: Cholecystectomy Additional Past Surgical History / Comment(s): wisdom teeth Past Anesthesia/Blood Transfusion Reactions: No Reported Reaction Past Psychological History: Anxiety, Depression Smoking Status: Never smoker Past Alcohol Use History: None Reported Past Drug Use History: None Reported General Exam Limitations: no limitations General appearance: alert, in no apparent distress ENT exam: Present: mucous membranes moist Neck exam: Present: normal inspection Respiratory exam: Present: normal lung sounds bilaterally Cardiovascular Exam: Present: regular rate, normal rhythm GI/Abdominal exam: Present: soft External exam: Present: other (Exam performed by Isabel Carey PA-C. Os closed. Trace bleeding. ) Neurological exam: Present: alert, oriented X3 Skin exam: Present: warm, dry Course Vital Signs 08/16/23 20:09 Temperature 98 F Pulse Rate 97 Respiratory 18 Rate Blood Pressure 135/90 O2 Sat by Pulse 92 L Oximetry Medical Decision Making - Medical Decision Making Was pt. sent in by a medical professional or institution ([facility], BATCH STILL OPERATOR, urgent care, hospital, or alf...) When possible be specific @ -No Did you speak to anyone other than the patient for history (EMS, parent, family, police, friend...)? What history was obtained from this source @ -No Did you review nursing and triage notes (agree or disagree)? Why? @ -I reviewed and agree with nursing and triage notes Were old charts reviewed (outside hosp., previous admission, EMS record, old EK G, old radiological studies, urgent care reports/EKG's, alf records)? Report findings @ -No old charts were reviewed Differential Diagnosis (chest pain, altered mental status, abdominal pain women, abdominal pain men, vaginal bleeding, weakness, fever, dyspnea, syncope, headache, dizziness, GI bleed, back pain, seizure, CVA, palpatations, mental health, musculoskeletal)? @ -Differential Vaginal Bleeding: Spontaneous , threatened , molar , ectopic , bloody show, incompetent cervix, abruptioplacenta, placenta previa, uterine rupture, dysfunctional uterine bleeding, hemorrhage, uterine fibroids, this is not meant to be an all-inclusive list. EKG interpreted by me (3pts min.). @ -As above X-rays interpreted by me (1pt min.). @ -None done CT interpreted by me (1pt min.). @ -None done U/S interpreted by me (1pt. min.). @ -Ultrasound interpreted by me showing IUP measuring 10 weeks 3 days with heart rate 161 beats for minute. There is also small hypoechoic focus adjacent to the gestational sac which could represent small subchorionic hematoma. What testing was considered but not performed or refused? (CT, X-rays, U/S, labs)? Why? @ -None What meds were considered but not given or refused? Why? @ -None Did you discuss the management of the patient with other professionals (professionals i.e. [facility], BATCH STILL OPERATOR, lab, RT, psych nurse, executive secretary social welfare, veneer matcher, teacher, cavalry officer, caseworker intake)? Give summary @ -No Was smoking cessation discussed for >3mins.? @ -No Was critical care preformed (if so, how long)? @ -No Were there social determinants of health that impacted care today? How? (Homelessness, low income, unemployed, alcoholism, drug addiction, transportation, low edu. Level, literacy, decrease access to med. care, correction, rehab)? @ -No Was there de-escalation of care discussed even if they declined (Discuss DNR or withdrawal of care, Hospice)? DNR status @ -No What co-morbidities impacted this encounter? (DM, HTN, Smoking, COPD, CAD, Cancer, CVA, ARF, Chemo, Hep., AIDS, mental health diagnosis, sleep apnea, morbid obesity)? @ -None Was patient admitted / discharged? Hospital course, mention meds given and route, prescriptions, significant lab abnormalities, going to OR and other pe rtinent info. @ -Discharge 23-year-old female approximately 10 weeks presenting to the ED with a chief complaint of painless vaginal bleeding. Ultrasound performed showing single live IUP with a heart rate of 161 bpm. Also finding consistent possibly with a small subchorionic hemorrhage. Laboratory studies reviewed and unremarkable. Per patient, prior hCG approximately 40,000. Serum hCG today 59,238. Patient discharged home in stable condition and advised to follow up with her FLOW MANAGER. Discussed return precautions with patient verbalizes who agreement. Undiagnosed new problem with uncertain prognosis? @ -No Drug Therapy requiring intensive monitoring for toxicity (Heparin, Nitro, Insulin, Cardizem)? @ -No Were any procedures done? @ -No Diagnosis/symptom? @ -Vaginal bleeding in Acute, or Chronic, or Acute on Chronic? @ -Acute Uncomplicated (without systemic symptoms) or Complicated (systemic symptoms)? @ -Uncomplicated Side effects of treatment? @ -No Exacerbation, Progression, or Severe Exacerbation? @ -No Poses a threat to life or bodily function? How? (Chest pain, [place], [place], pneumonia, PE, COPD, DKA, ARF, appy, cholecystitis, CVA, Diverticulitis, Homicidal, Suicidal, threat to staff... and all critical care pts) @ -No - Lab Data Result diagrams: 08/16/23 20:58 08/16/23 20:58 Lab Results 08/16/23 08/16/23 08/16/23 Range/Units 20:33 20:58 20:58 WBC 10.8 H (3.8-10.6) k/uL RBC 4.40 (3.80-5.40) m/uL Hgb 12.9 (11.4-16.0) gm/dL Hct 37.7 (34.0-46.0) % MCV 85.8 (80.0-100.0) fL MCH 29.2 (25.0-35.0) pg MCHC 34.1 (31.0-37.0) g/dL RDW 13.0 (11.5-15.5) % Plt Count 309 (150-450) k/uL MPV 7.4 Neutrophils % 71 % Lymphocytes % 21 % Monocytes % 3 % Eosinophils % 4 % Basophils % 0 % Neutrophils # 7.6 (1.3-7.7) k/uL Lymphocytes # 2.2 (1.0-4.8) k/uL Monocytes # 0.4 (0-1.0) k/uL Eosinophils # 0.4 (0-0.7) k/uL Basophils # 0.0 (0-0.2) k/uL Sodium 137 (137-145) mmol/L Potassium 3.7 (3.5-5.1) mmol/L Chloride 102 (98-107) mmol/L Carbon Dioxide 21 L (22-30) mmol/L Anion Gap 14 mmol/L BUN 8 (7-17) mg/dL Creatinine 0.52 (0.52-1.04) mg/dL Est GFR (CKD-EPI)AfAm >90 (>60 ml/min/1.73 sqM) Est GFR (CKD-EPI)NonAf >90 (>60 ml/min/1.73 sqM) Glucose 93 (74-99) mg/dL Calcium 9.5 (8.4-10.2) mg/dL Total Bilirubin 0.3 (0.2-1.3) mg/dL AST 22 (14-36) U/L ALT 24 (4-34) U/L Alkaline Phosphatase 77 (38-126) U/L Total Protein 7.4 (6.3-8.2) g/dL Albumin 4.2 (3.5-5.0) g/dL HCG, Quant 90162.5 mIU/mL Urine Color Yellow Urine Appearance Clear (Clear) Urine pH 6.0 (5.0-8.0) Ur Specific [place] 1.020 (1.001-1.035) Urine Protein Negative (Negative) Urine Glucose (UA) Negative (Negative) Urine Ketones Negative (Negative) Urine Blood Large H (Negative) Urine Nitrite Negative (Negative) Urine Bilirubin 2+ H (Negative) Urine Urobilinogen <2.0 (<2.0) mg/dL Ur Leukocyte Esterase Small H (Negative) Urine RBC 2 (0-5) /hpf Urine WBC <1 (0-5) /hpf Ur Squamous Epith Cells 1 (0-4) /hpf Urine Mucus Rare H (None) /hpf Disposition Clinical Impression: Vaginal bleeding Disposition: HOME SELF-CARE Condition: Good Additional Instructions: Please return to the Emergency Department if symptoms worsen or any other concerns. Please follow up with your FLOW MANAGER. Is patient prescribed a controlled substance at d/c from ED?: No Referrals: Marylou King DO [Primary Care Provider] - 1-2 days Time of Disposition: 23:36
[2023-08-16 21:06] LABS: Basophils % (A) 0 %; Eosinophils # (A) 0.4 k/uL (0-0.7); Eosinophils % (A) 4 %; HCT 37.7 % (34.0-46.0); HGB 12.9 gm/dL (11.4-16.0); Lymphocytes # (A) 2.2 k/uL (1.0-4.8); Lymphocytes % (A) 21 %; MCH 29.2 pg (25.0-35.0); MCHC 34.1 g/dL (31.0-37.0); MCV 85.8 fL (80.0-100.0); Mean Platelet Volume 7.4; Monocytes # (A) 0.4 k/uL (0-1.0); Monocytes % (A) 3 %; Neutrophils # (A) 7.6 k/uL (1.3-7.7); Neutrophils % (A) 71 %; Platelet Count 309 k/uL (150-450); WBC 10.8 k/uL (3.8-10.6)
[2023-08-16 22:00] LABS: Appearance,Urine Clear (Clear); Color,Urine Yellow; Mucus,Urine Rare /hpf; RBC,Urine 2 /hpf (0-5); Squamous Epithelial Cell,Urine 1 /hpf (0-4); WBC,Urine <1 /hpf (0-5)
[2023-08-16 22:01] LABS: Bilirubin,Urine 2+ (Negative); Blood,Urine Large (Negative); Glucose,Urine (UA) Negative (Negative); Ketones,Urine Negative (Negative); Protein,Urine Negative (Negative)
[2023-08-16 22:02] LABS: Leukocyte Esterase,Urine Small (Negative); Nitrite,Urine Negative (Negative); Urobilinogen,Urine <2.0 mg/dL (<2.0)
[2023-08-16 22:21] LABS: ALT 24 U/L (4-34); AST 22 U/L (14-36); African American GFR (CKD) >90 (>60 ml/min/1.73 sqM); Albumin 4.2 g/dL (3.5-5.0); Alkaline Phosphatase 77 U/L (38-126); Anion Gap 14 mmol/L; Blood Urea Nitrogen 8 mg/dL (7-17); Calcium 9.5 mg/dL (8.4-10.2); Carbon Dioxide 21 mmol/L (22-30); Chloride 102 mmol/L (98-107); Glucose 93 mg/dL (74-99); Non-African American GFR(CKD) >90 (>60 ml/min/1.73 sqM); Potassium 3.7 mmol/L (3.5-5.1); Sodium 137 mmol/L (137-145); Total Bilirubin 0.3 mg/dL (0.2-1.3); Total Protein 7.4 g/dL (6.3-8.2)
--- NOTE | 2023-08-16 23:06 | US ---
EXAMINATION TYPE: Transabdominal ultrasound OB less than 14 weeks fetus DATE OF EXAM: 08/16/2023 9:29 PM COMPARISON: 08/01/23 CLINICAL INDICATION: Female, 23 years old with history of 10 wks , vag bleeding; one episode of vaginal bleeding today. no cramping EXAM PERFORMED: Transabdominal (TA) ultrasound of the gravid uterus was performed with static graysc vinay images submitted for interpretation.. EXAM MEASUREMENTS: GESTATIONAL AGE / DATING Physician Established: (10 weeks/2 days) EDC: 03/11/24 Dates by First Scan: (10 weeks/2 days) EDC: 03/11/24 Dates by Current Scan for: (10 weeks/3 days) EDC: 03/10/24 MATERNAL ANATOMY Uterus: 9.9 x 8.0 x 5.7cm Right Ovary: 3.1 x 2.3 x 2.0cm Left Ovary: 3.4 x 3.4 x 2.4cm Post CDS / Adnexa: Within normal limits. Presence of free fluid: No Presence of corpus luteal cyst: No Presence of subchorionic bleed: Possible. Small hypoechoic area seen measuring 1.0 x 1.1 x 1.2cm GESTATION / SURVEY CRL: 3.51cm (10 weeks/3 days) MSD: Not measured Yolk Sac (normal less than 6mm): Not seen, placenta forming Heart Rate: 161 bpm Rhythm: Normal IUP: Viable IUP Date of LMP: 05/27/24 Beta HcG (if available): Not available at this time IMPRESSION: 1. Single, live intrauterine measuring 10 weeks 3 days, with heart rate 161 BPM. 2. Small hypoechoic focus adjacent to the gestational sac, could represent small subchorionic hemato ma. Follow-up recommended.
[2023-08-17 00:33] VITALS: BP 131/87; PULSE 82; TEMP 98
== END 2023-08-17 00:09 | disposition home or self-care (01) ==
LOC: EC 20:08
DX: O46.91 Antepartum hemorrhage, unspecified, first trimester (principal); O16.1 Unspecified maternal hypertension, first trimester; O99.511 Diseases of the respiratory system complicating pregnancy, first trimester; O9A.511 Psychological abuse complicating pregnancy, first trimester; N93.9 Abnormal uterine and vaginal bleeding, unspecified; J45.909 Unspecified asthma, uncomplicated; F41.9 Anxiety disorder, unspecified; F32.A Depression, unspecified; Z79.899 Other long term (current) drug therapy; Z3A.10 10 weeks gestation of pregnancy
CPT/HCPCS: 36415; 76801; 80053; 81001; 84702; 85025; 99284

== ENCOUNTER 2023-12-11 06:40 | Outpatient (CLI) | payer BC ==
[2023-12-11 08:02] VITALS: BP 144/82; PULSE 88; RESP 16; TEMP 97.9
--- NOTE | 2023-12-11 09:07 | P.MSEPDOC ---
Presenting Problems - Arrival Data Date of Arrival on Unit: 12/11/23 Time of Arrival on Unit: 06:40 Mode of Transport: Ambulatory - Complaint OB-Reason for Admission/Chief Complaint: Other Comment: Cramping/abdominal pressure Medical History - Information : 2 Para: 0 Term: 0 : 0 Abortions: Spontaneous or Elective: 1 Number of Living Children: 0 - Gestational Age Gestational Age by ANIA (wks/days): 27 Weeks and 0 Days - History Complications: Chronic HTN Review of Systems - Review of Systems Constitutional: No problems Breast: No problems ENT: No problems Cardiovascular: No problems Respiratory: No problems Gastrointestinal: No problems Genitourinary: No problems Musculoskeletal: No problems Neurological: No problems Skin: No problems Vital Signs - Temperature Temperature: 97.9 F Temperature Source: Temporal Artery Scan - Pulse Left Pulse Oximetery Pulse Rate: 88 Pulse Assessment Method: Pulse Oximetry - Respirations Respiratory Rate: 16 Oxygen Delivery Method: Room Air O2 Sat by Pulse Oximetry: 96 - Blood Pressure Right Arm Blood Pressure: 144/82 Blood Pressure Mean: 102 Blood Pressure Source: Automatic Cuff Medical Screen Scoring - Cervical Exam Dilation (cm): 1 Membranes: Intact - Assessment - Baby A Baseline FHR: 145 Physician Notification - Physician Notified Physician Notified Date: 12/11/23 Physician Notified Time: 06:58 Physician: Tanesha Evans New Order Received: Yes - Notification Comment Comment: Dr. Evans notified of pt's arrival to triage, physician aware of pt's complaint as she had spoken to pt prior to arrival. Reported maternal and status including abdominal palpation, history of intercourse, and FHTs. Orders for a SVE, if closed-1cm/thick, pt okay to be discharged home. RN repeated and confirmed orders verbally. Maternal Triage Index - Maternal Triage Index Presenting for scheduled procedure w/no complaint: No - Stat/Priority 1 Stat Priority 1: No - Urgent/Priority 2 Urgent Priority 2: No - Prompt/Priority 3 Prompt Priority 3: No - Non-Urgent/Priority 4 Non-Urgent Priority 4: Yes Criteria Met for Priority 4: Pt is a with ANIA 03/11/24 here at 27.0 weeks of gestation with c/o cramping anf abdominal pressure following intercourse. Pt denies LOF or VB. Pt reports +FM. Pt reports that the is complicated by marginal cord insertion and a 2 vessel cord. Disposition - Disposition OB Disposition: Discharge to home Discharge Date: 12/11/23 Discharge Time: 07:05 I agree with the RN Medical Screening Exam: Yes Case reviewed; plan agreed upon as documented in EMR&OBIX.: Yes Diagnosis: PAIN, UNSPECIFIED
== END 2023-12-11 07:05 | disposition home or self-care (01) ==
LOC: FBPOP 06:40
PROVIDERS: ATTEND Obstetrics & Gynecology
DX: O26.892 Other specified pregnancy related conditions, second trimester (principal); R10.9 Unspecified abdominal pain; O10.912 Unspecified pre-existing hypertension complicating pregnancy, second trimester; Z3A.27 27 weeks gestation of pregnancy
CPT/HCPCS: 99213

== ENCOUNTER 2023-12-11 10:04 | Outpatient (CLI) | payer BC ==
[2023-12-11 11:04] LABS: Appearance,Urine Clear (Clear); Bilirubin,Urine Negative (Negative); Blood,Urine Negative (Negative); Color,Urine Colorless; Glucose,Urine (UA) Negative (Negative); Ketones,Urine Negative (Negative); Leukocyte Esterase,Urine Negative (Negative); Nitrite,Urine Negative (Negative); Protein,Urine Negative (Negative); Urobilinogen,Urine <2.0 mg/dL (<2.0)
[2023-12-11] MEDS: ONDANSETRON 4 MG/2 ML VIAL IVP STA (11:13)
[2023-12-11] MEDS: LACTATED RINGERS 1,000 ML IV ONE (11:13)
[2023-12-11 11:38] VITALS: BP 142/77; PULSE 89; RESP 18; TEMP 98.3
--- NOTE | 2023-12-20 18:25 | P.MSEPDOC ---
Presenting Problems - Arrival Data Date of Arrival on Unit: 12/11/23 Time of Arrival on Unit: 10:04 Mode of Transport: Ambulatory - Complaint OB-Reason for Admission/Chief Complaint: Acute Nausea/Vomiting Medical History - Information : 2 Para: 0 Term: 0 : 0 Abortions: Spontaneous or Elective: 1 Number of Living Children: 0 - Gestational Age Gestational Age by ANIA (wks/days): 27 Weeks and 0 Days Review of Systems - Review of Systems Constitutional: No problems Breast: No problems ENT: No problems Cardiovascular: No problems Respiratory: No problems Gastrointestinal: No problems Genitourinary: No problems Musculoskeletal: No problems Neurological: No problems Skin: No problems Vital Signs - Temperature Temperature: 98.3 F - Pulse Right Brachial Pulse Rate: 89 Pulse Assessment Method: Automatic Cuff - Respirations Respiratory Rate: 18 Oxygen Delivery Method: Room Air O2 Sat by Pulse Oximetry: 97 - Blood Pressure Right Arm Supine Blood Pressure: 142/77 Blood Pressure Mean: 98 Blood Pressure Source: Automatic Cuff Medical Screen Scoring - Cervical Exam Dilation (cm): 1 Effacement (%): 0 Station: -3 Membranes: Intact - Uterine Contractions Frequency From (mins): 0 Frequency To (mins): 0 - Assessment - Baby A Baseline FHR: 140 Heart Rate - NICHD Category: Category I (Normal) Physician Notification - Physician Notified Physician Notified Date: 12/11/23 Physician Notified Time: 11:58 Physician: Maisha Fonseca New Order Received: Yes (d/c with instruction) Maternal Triage Index - Maternal Triage Index Presenting for scheduled procedure w/no complaint: No - Stat/Priority 1 Stat Priority 1: No - Urgent/Priority 2 Urgent Priority 2: Yes Provider Notified: Maisha Fonseca Provider Notified Time: 10:25 Criteria Met for Priority 2: 27.0 weeks, acute nausea/vomiting Disposition - Disposition OB Disposition: Triage, Discharge to home, Written follow up instructions reviewed Discharge Date: 12/11/23 Discharge Time: 12:00 I agree with the RN Medical Screening Exam: Yes Case reviewed; plan agreed upon as documented in EMR&OBIX.: Yes Diagnosis: VOMITING OF , UNSPECIFIED
== END 2023-12-11 12:00 | disposition home or self-care (01) ==
LOC: FBPOP 10:04
PROVIDERS: ATTEND Obstetrics & Gynecology Obstetrics
DX: O21.9 Vomiting of pregnancy, unspecified (principal); Z3A.27 27 weeks gestation of pregnancy
CPT/HCPCS: 99214; 96361; 96374; 36415; 81003; 87636; J2405

== ENCOUNTER 2023-12-12 06:44 | Outpatient (CLI) | payer BC ==
[2023-12-12 09:32] LABS: Basophils % (A) 0 %; Eosinophils # (A) 0.2 k/uL (0-0.7); Eosinophils % (A) 1 %; HCT 36.8 % (34.0-46.0); HGB 11.9 gm/dL (11.4-16.0); Lymphocytes # (A) 1.6 k/uL (1.0-4.8); Lymphocytes % (A) 11 %; MCH 28.5 pg (25.0-35.0); MCHC 32.2 g/dL (31.0-37.0); MCV 88.4 fL (80.0-100.0); Mean Platelet Volume 7.4; Monocytes # (A) 0.5 k/uL (0-1.0); Monocytes % (A) 3 %; Neutrophils # (A) 12.5 k/uL (1.3-7.7); Neutrophils % (A) 84 %; Platelet Count 284 k/uL (150-450); RBC 4.17 m/uL (3.80-5.40); RDW 13.8 % (11.5-15.5); WBC 14.9 k/uL (3.8-10.6)
[2023-12-12] MEDS: LACTATED RINGERS 1,000 ML IV ONE (10:33)
[2023-12-12] MEDS: ONDANSETRON 4 MG/2 ML VIAL IM STA (10:33)
[2023-12-12] MEDS: ACETAMINOPHEN IV (For NPO) 1,000 MG in EMPTY BAG 1 BAG IVPB ONE (10:39)
--- NOTE | 2023-12-12 12:22 | US ---
EXAMINATION TYPE: US abdomen APPY DATE OF EXAM: 12/12/2023 COMPARISON: NONE CLINICAL INDICATION: Female, 23 years old with history of c/o lower left and right quad pain.; Genera lized lower pain. Patient is 27 weeks TECHNIQUE: Multiple sonographic images of the right lower quadrant were obtained with graded compress ion. FINDINGS: APPENDIX Is the appendix seen in its entirety from the proximal cecum to distal end: Appendix not visualized at time of scan, limited due to patients status Is there inflammatory changes or free fluid present: No CLINICAL QUALITY ASSURANCE ASSOCIATE NOTES: Incidental finding: lymph node seen in right inguinal/groin with short axis yuridia surement = 1.0 cm and cortical thickness= 4.7 mm IMPRESSION: Nonvisualization of the appendix. Prominent lymph node noted to reflect mesenteric adenitis although I cannot exclude acute appendicitis. No abscess or fluid collection evident.
[2023-12-12 12:57] LABS: Appearance,Urine Clear (Clear); Bilirubin,Urine Negative (Negative); Blood,Urine Negative (Negative); Color,Urine Colorless; Glucose,Urine (UA) Negative (Negative); Ketones,Urine Negative (Negative); Leukocyte Esterase,Urine Negative (Negative); Nitrite,Urine Negative (Negative); Protein,Urine Negative (Negative); Specific Gravity,Urine 1.005 (1.001-1.035); Urobilinogen,Urine <2.0 mg/dL (<2.0)
[2023-12-12 14:32] VITALS: BP 142/77; PULSE 89; RESP 16; TEMP 98.3
== END 2023-12-12 13:44 | disposition home or self-care (01) ==
LOC: FBPOP 06:44
PROVIDERS: ATTEND Obstetrics & Gynecology
DX: I88.9 Nonspecific lymphadenitis, unspecified (principal); O99.412 Diseases of the circulatory system complicating pregnancy, second trimester; Z3A.27 27 weeks gestation of pregnancy
CPT/HCPCS: 99214; 96361; 96365; 96366; 96367; 96375; 85025; 81003; 76705; J2405; J0131

== ENCOUNTER → 2024-01-10 | Outpatient (CLI) | payer BC ==
[~2024-01-10] MED LIST changes: -DEXAMETHASONE SOD PHOSPHATE 4 MG/ML 1 ML VIAL IV ONE; -HEPARIN SODIUM,PORCINE/PF 5,000 UNIT/0.5 ML SYRINGE SQ PRN; -HYDROmorphone (PF) 1 MG/ML ONE; -HYDROmorphone 0.5 MG/0.5 ML SYRINGE IVP PRN; -LACTATED RINGERS 1,000 ML IV ONE; -LACTATED RINGERS 1,000 ML IV SCH; -LIDOCAINE 2% INJ 20 MG/ML (2 ML VIAL) ONE; -MIDAZOLAM 2 MG/2 ML VIAL IV PRN; -MIDAZOLAM 2 MG/2 ML VIAL ONE; +ONDANSETRON 4 MG/2 ML VIAL IM STA; -ONDANSETRON 4 MG/2 ML VIAL IVP ONE; -PROPOFOL 10 MG/ML 20 ML VIAL IV ONE; -SCOPOLAMINE 1 MG/72 HR PATCH TRANSDERM ONE; -SUCCINYLCHOLINE CHLORIDE 200 MG/10 ML VIAL IV ONE; -fentaNYL (PF) 50 MCG/ML 2 ML AMP ONE
[2024-01-10] MEDS: LACTATED RINGERS 1,000 ML IV ONE ×2 (15:14→15:53)
[2024-01-10] MEDS: ONDANSETRON 4 MG/2 ML VIAL IVP STA (15:20)
[2024-01-10 16:43] LABS: Appearance,Urine Clear (Clear); Bilirubin,Urine Negative (Negative); Blood,Urine Negative (Negative); Color,Urine Colorless; Glucose,Urine (UA) Negative (Negative); Ketones,Urine 2+ (Negative); Leukocyte Esterase,Urine Negative (Negative); Nitrite,Urine Negative (Negative); PH, Urine 6.5 (5.0-8.0); Protein,Urine Negative (Negative); Specific Gravity,Urine 1.009 (1.001-1.035); Urobilinogen,Urine <2.0 mg/dL (<2.0)
[2024-01-10 21:18] VITALS: BP 126/74; PULSE 97; RESP 16; TEMP 98.1
--- NOTE | 2024-02-05 09:17 | P.MSEPDOC ---
Presenting Problems - Arrival Data Date of Arrival on Unit: 01/10/24 Time of Arrival on Unit: 13:20 Mode of Transport: Ambulatory - Complaint OB-Reason for Admission/Chief Complaint: Rule Out PROM, Acute Nausea/Vomiting Comment: Report given to Dr Fonseca vomiting, gush of fluid yesterday. cramping. reactive NST cat 1 FHT no contractions per monitor. PT has vomited one time since she has been her and has been unable to produce a urine spec. orders received for IV, 1 liter of LR , UA when able Amnisure and Ffn. will call with updates when test results available Medical History - Information : 2 Para: 0 Term: 0 : 0 Abortions: Spontaneous or Elective: 1 Number of Living Children: 0 - Gestational Age Gestational Age by ANIA (wks/days): 31 Weeks and 2 Days - History Complications: Other Comment: marginal cord insertion, 2 ves cord. pt longstanding HTN hx Review of Systems - Review of Systems Constitutional: No problems Breast: No problems ENT: No problems Cardiovascular: No problems Respiratory: No problems Gastrointestinal: Pain Genitourinary: No problems Musculoskeletal: No problems Neurological: No problems Skin: No problems Comment: nausea, vomiting, questionable rom, cramping Vital Signs - Temperature Temperature: 98.1 F Temperature Source: Temporal Artery Scan - Pulse Right Pulse Rate: 97 Pulse Assessment Method: Pulse Oximetry - Respirations Respiratory Rate: 16 Oxygen Delivery Method: Room Air O2 Sat by Pulse Oximetry: 97 - Blood Pressure Right Arm Blood Pressure: 126/74 Blood Pressure Mean: 91 Blood Pressure Source: Automatic Cuff Medical Screen Scoring - Uterine Contractions Frequency From (mins): 0 Frequency To (mins): 0 Duration From (seconds): 0 Duration To (seconds): 0 - Assessment - Baby A Baseline FHR: 140 Heart Rate - NICHD Category: Category I (Normal) NST: Reactive Physician Notification - Physician Notified Physician Notified Date: 01/10/24 Physician Notified Time: 14:40 Physician: Maisha Fonseca - Notification Comment Comment: Reviewed ua results and continued pending ffn with Dr Fonseca. She states pt may discharge home prior to result coming in. Nausea vomiting resolved with zofran and 2 L LR. Zofran script e scribed. pt to keep appt next week Maternal Triage Index - Maternal Triage Index Presenting for scheduled procedure w/no complaint: No - Stat/Priority 1 Stat Priority 1: No - Urgent/Priority 2 Urgent Priority 2: Yes Provider Notified: Maisha Fonseca Provider Notified Time: 14:40 Criteria Met for Priority 2: questionable rom, vomiting, cramping Disposition - Disposition OB Disposition: Discharge to home Discharge Date: 01/10/24 Discharge Time: 18:00 I agree with the RN Medical Screening Exam: Yes Case reviewed; plan agreed upon as documented in EMR&OBIX.: Yes Diagnosis: RELATED CONDITIONS, UNSPECIFIED, THIRD TRIMESTER
== END ==
LOC: FBPOP 13:20
PROVIDERS: ATTEND Obstetrics & Gynecology Obstetrics
DX: O21.9 Vomiting of pregnancy, unspecified (principal); O47.03 False labor before 37 completed weeks of gestation, third trimester; Z3A.31 31 weeks gestation of pregnancy
CPT/HCPCS: 59025; 99214; 96361; 96374; 84112; 82731; 81003; J2405; 36415; 96360; 96366

== ENCOUNTER 2024-02-12 07:23 | Outpatient (CLI) | payer BC ==
[2024-02-12] MEDS: LACTATED RINGERS 1,000 ML IV ONE (09:10)
[2024-02-12 10:16] VITALS: BP 128/79; PULSE 103; RESP 16; TEMP 97.8
--- NOTE | 2024-03-29 09:12 | P.MSEPDOC ---
Presenting Problems - Arrival Data Date of Arrival on Unit: 02/12/24 Time of Arrival on Unit: 07:23 Mode of Transport: Ambulatory - Complaint OB-Reason for Admission/Chief Complaint: Possible Onset of Labor Comment: Vaginal bleeding, cramping, pressure Medical History - Information : 2 Para: 0 Term: 0 : 0 Abortions: Spontaneous or Elective: 1 Number of Living Children: 0 - Gestational Age Gestational Age by ANIA (wks/days): 36 Weeks and 0 Days Review of Systems - Review of Systems Constitutional: No problems Breast: No problems ENT: No problems Cardiovascular: No problems Respiratory: No problems Gastrointestinal: No problems Genitourinary: No problems Musculoskeletal: No problems Neurological: No problems Skin: No problems Vital Signs - Temperature Temperature: 97.8 F Temperature Source: Temporal Artery Scan - Pulse Pulse Oximetery Pulse Rate: 103 Pulse Assessment Method: Pulse Oximetry - Respirations Respiratory Rate: 16 Oxygen Delivery Method: Room Air O2 Sat by Pulse Oximetry: 97 - Blood Pressure Right Arm Blood Pressure: 128/79 Blood Pressure Mean: 95 Blood Pressure Source: Automatic Cuff Medical Screen Scoring - Cervical Exam Dilation (cm): 3 Effacement (%): 80 Station: -2 Membranes: Intact - Uterine Contractions Frequency From (mins): 6 Frequency To (mins): 9 Duration From (seconds): 30 Duration To (seconds): 70 Intensity: Mild Resting: Soft to palpation - Assessment - Baby A Baseline FHR: 145 Heart Rate - NICHD Category: Category I (Normal) NST: Reactive Physician Notification - Physician Notified Physician Notified Date: 02/12/24 Physician Notified Time: 08:58 Physician: Maisha Fonseca New Order Received: Yes - Notification Comment Comment: Dr. Fonseca called at office, report given on maternal c/o vaginal bleeding this morning at 0600 but none since, constant cramping, pelvic pressure, and irregular cx. Uterine irritability noted initially but now cx are 6-9mins apart and pt is feeling cx more. SVE was 3/80/-2 with no change after 1hr. BP 128/79, FHTs catergory 1 and reactive. Orders to start IV and give 1L LR bolus and recheck cervix in 1hr. 1000 -Dr. Fonseca calling back, report given on SVE unchanged (3/80/-2), cx have spaced out but pt still complains of cramping. Pt has received 1L LR. Orders to discharge pt home with instructions to keep her appointment tomorrow. Maternal Triage Index - Maternal Triage Index Presenting for scheduled procedure w/no complaint: No - Stat/Priority 1 Stat Priority 1: No - Urgent/Priority 2 Urgent Priority 2: No - Prompt/Priority 3 Prompt Priority 3: Yes Criteria Met for Priority 3: 36 0/7wks, vaginal bleeding, cramping, pressure, velamentous cord insertion Disposition - Disposition OB Disposition: Discharge to home Discharge Date: 02/12/24 Discharge Time: 10:05 I agree with the RN Medical Screening Exam: Yes Case reviewed; plan agreed upon as documented in EMR&OBIX.: Yes Diagnosis: FALSE LABOR BEFORE 37 COMPLETED WEEKS OF GEST, THIRD TRI
== END 2024-02-12 10:05 | disposition home or self-care (01) ==
LOC: FBPOP 07:23
PROVIDERS: ATTEND Obstetrics & Gynecology
DX: O47.03 False labor before 37 completed weeks of gestation, third trimester (principal); Z3A.36 36 weeks gestation of pregnancy; Z91.018 Allergy to other foods
CPT/HCPCS: 59025; 96360; 99214

== ENCOUNTER 2024-02-12 18:17 | Observation (INO) | payer BC ==
[2024-02-12 20:27] VITALS: PULSE 105
[2024-02-12] MEDS: NALBUPHINE 10 MG/ML (10 ML MDV) IV PRN (20:30)
[2024-02-12] MEDS: LACTATED RINGERS 1,000 ML IV ONE (20:30)
[2024-02-12 20:41] VITALS: BP 136/82; RESP 16
[2024-02-13] MEDS: ACETAMINOPHEN TAB 325 MG TAB PO PRN (06:43)
[2024-02-13] MEDS: ONDANSETRON 4 MG/2 ML VIAL IVP STA (08:24)
[2024-02-13] MEDS: NIFEdipine XL 30 MG TAB.ER.24 PO SCH (08:25)
--- NOTE | 2024-02-13 08:52 | P.HPOB ---
History of Present Illness H&P Date: 02/13/24 Chief Complaint: IUP at 36 and 0/7 weeks, contractions 24-year-old G2, P0 at 35-6/7 weeks that presents to labor and delivery with complaints of contractions. Patient presented through the day yesterday and after multiple hours no cervical change was made. Patient called after-hours once again complaining of contractions less than 5 minutes apart. Patient was instructed to represent to OB triage. Patient was noted to be the same although complaining of contractions rating them 7-8 out of 10 on a pain scale. Patient denied vaginal bleeding or loss of fluid. She does think she lost the rest of her mucous plug. Patient notes good movement. Patient was admitted for observation overnight. Review of Systems Constitutional: Reports fatigue, Denies chills, Denies fever Ears, nose, mouth and throat: Denies headache Cardiovascular: Denies edema Respiratory: Denies dyspnea Gastrointestinal: Denies constipation, Denies diarrhea, Denies nausea, Denies vomiting Genitourinary: Reports Past Medical History Past Medical History: Asthma, Hypertension Additional Past Medical History / Comment(s): pre-diabetic History of Any Multi-Drug Resistant Organisms: None Reported Past Surgical History: Cholecystectomy Additional Past Surgical History / Comment(s): wisdom teeth Past Anesthesia/Blood Transfusion Reactions: No Reported Reaction Past Psychological History: Anxiety, Depression Smoking Status: Never smoker Past Alcohol Use History: None Reported Past Drug Use History: None Reported Medications and Allergies Home Medications Medication Instructions Recorded Confirmed Type Aspirin 81 mg PO DAILY 12/11/23 02/12/24 History NIFEdipine [Adalat CC] 30 mg PO DAILY 12/11/23 02/12/24 History Vit No.179/Iron/Folic 1 tab PO DAILY 12/11/23 02/12/24 History [ Tablet] Sertraline [Zoloft] 50 mg PO DAILY 12/11/23 02/12/24 History Ondansetron [Zofran] 4 mg PO Q8HR PRN 02/12/24 02/12/24 History Allergies Allergy/AdvReac Type Severity Reaction Status Date / Time No Known Allergies Allergy Verified 02/12/24 18:26 Exam Osteopathic Statement: *. No significant issues noted on an osteopathic structural exam other than those noted in the History and Physical/Consult. Vital Signs Pulse Resp BP Pulse Ox 02/12/24 20:02 105 H 16 136/82 97 02/12/24 18:25 105 H 18 136/76 97 Intake and Output 02/12/24 02/13/24 02/13/24 22:59 06:59 14:59 Other: # Voids 2 2 Weight 115.666 kg Targeted physical exam is performed this date General is a well-nourished well- developed female in no acute distress, she is resting comfortably in bed. Breathing is noted to be nonlabored, abdomen is known to be gravid, heart tones noted to be category 1 and she is kathryn very irregularly. Cervical exam is deferred as she was checked at 6 AM and cervix was appreciated to be 3/80/-3 with no change from yesterday. Assessment and Plan (1) 36 weeks gestation of Current Visit: Yes Status: Acute Code(s): Z3A.36 - 36 WEEKS GESTATION OF SNOMED Code(s): 78333554 (2) contractions Current Visit: Yes Status: Acute Code(s): O47.00 - FALSE LABOR BEFORE 37 COMPLETED WEEKS OF GEST, UNSP TRI SNOMED Code(s): 805648843 (3) Chronic hypertension Current Visit: Yes Status: Acute Code(s): I10 - ESSENTIAL (PRIMARY) HYPERTENSION SNOMED Code(s): 01878571 (4) Marginal insertion of umbilical cord Current Visit: Yes Status: Acute Code(s): KHT7874 - SNOMED Code(s): 27711454 Plan: 24-year-old G2, P0 at 36-0/7 weeks this morning presented to OB with complaints of continued contractions. Patient is admitted for observation through the night. Contractions were noted to space through the evening, patient is noting pelvic pressure but no cervical change was appreciated through the night. Patient is counseled on labor precautions and induction of labor next week for hypertension on Procardia.
--- NOTE | 2024-02-13 08:54 | P.DS ---
Providers Date of admission: 02/12/24 19:52 Expected date of discharge: 02/13/24 Attending physician: Maisha Fonseca Primary care physician: Stated None - Discharge Diagnosis(es) (1) 36 weeks gestation of Current Visit: Yes Status: Acute (2) contractions Current Visit: Yes Status: Acute (3) Chronic hypertension Current Visit: Yes Status: Acute (4) Marginal insertion of umbilical cord Current Visit: Yes Status: Acute Hospital Course: 24-year-old G2, P0 at 36-0/7 weeks that presented to labor and delivery last evening after continued contractions. Patient was seen in OB triage on the day with multiple hours of observation and no cervical change. Patient went home and stated contractions began to become more uncomfortable and less than 5 minutes apart. Patient Bernabe presented to OB triage with no cervical change appreciated. Contractions were noted to be every 2 to 3 minutes with discomfort appreciated. Patient was admitted for observation through the night. IV fluids were initiated. Patient had spacing of contractions through the night with no cervical change appreciated. Patient Condition at Discharge: Good Plan - Discharge Summary New Discharge Prescriptions: No Action NIFEdipine [Adalat CC] 30 mg PO DAILY Vit No.179/Iron/Folic [ Tablet] 1 tab PO DAILY Sertraline [Zoloft] 50 mg PO DAILY Ondansetron [Zofran] 4 mg PO Q8HR PRN PRN Reason: Nausea Aspirin 81 mg PO DAILY Discharge Medication List Aspirin 81 mg PO DAILY 12/11/23 [History] NIFEdipine [Adalat CC] 30 mg PO DAILY 12/11/23 [History] Vit No.179/Iron/Folic [ Tablet] 1 tab PO DAILY 12/11/23 [History] Sertraline [Zoloft] 50 mg PO DAILY 12/11/23 [History] Ondansetron [Zofran] 4 mg PO Q8HR PRN 02/12/24 [History] Follow up Appointment(s)/Referral(s): Maisha Fonseca DO [Doctor of Osteopathic Medicine] - 1 Week Activity/Diet/Wound Care/Special Instructions: Off work until induction of labor next week. Discharge Disposition: HOME SELF-CARE
== END 2024-02-13 09:10 | disposition home or self-care (01) ==
LOC: FBPOP 18:17 → 4FBP 19:52
PROVIDERS: ADMIT Obstetrics & Gynecology Obstetrics; ATTEND Obstetrics & Gynecology Obstetrics
DX: O60.03 Preterm labor without delivery, third trimester (principal); O16.3 Unspecified maternal hypertension, third trimester; O43.193 Other malformation of placenta, third trimester; Z79.82 Long term (current) use of aspirin; Z79.899 Other long term (current) drug therapy; Z3A.36 36 weeks gestation of pregnancy
CPT/HCPCS: 59025; 99213; 96361 ×2; 96374; 96375; J2300; J2405

== ENCOUNTER 2024-02-18 01:43 | Inpatient (IN) | payer BC ==
[2024-02-18] MEDS ORDERED: OXYTOCIN 10 UNIT/ML 1 ML VIAL IM PRN (02:09)
[2024-02-18] MEDS ORDERED: TERBUTALINE 1 MG/ML VIAL SQ PRN (02:09)
[2024-02-18] MEDS ORDERED: miSOPROStoL 200 MCG TAB PO PRN (02:09)
[2024-02-18] MEDS ORDERED: METHYLERGONOVINE 0.2 MG/ML 1 ML AMP IM PRN (02:09)
[2024-02-18] MEDS ORDERED: CARBOPROST TROMETHAMINE 250 MCG/ML 1 ML AMP IM PRN (02:09)
[2024-02-18] MEDS ORDERED: TRANEXAMIC 1,000 MG/100ML-NACL 1,000 MG in EMPTY BAG 1 BAG IV PRN (02:09)
[2024-02-18] MEDS: LACTATED RINGERS 1,000 ML IV SCH (02:32)
[2024-02-18 03:07] LABS: Basophils % (A) 0 %; Eosinophils # (A) 0.2 k/uL (0-0.7); Eosinophils % (A) 1 %; HCT 36.3 % (34.0-46.0); HGB 11.8 gm/dL (11.4-16.0); Lymphocytes % (A) 13 %; MCH 28.2 pg (25.0-35.0); MCHC 32.4 g/dL (31.0-37.0); MCV 86.9 fL (80.0-100.0); Mean Platelet Volume 8.6; Monocytes # (A) 0.7 k/uL (0-1.0); Monocytes % (A) 4 %; Neutrophils # (A) 12.6 k/uL (1.3-7.7); Neutrophils % (A) 81 %; Platelet Count 259 k/uL (150-450); RBC 4.18 m/uL (3.80-5.40); RDW 14.3 % (11.5-15.5); WBC 15.6 k/uL (3.8-10.6)
[2024-02-18] MEDS ORDERED: SODIUM CHLORIDE 0.9% 250 ML BAG ONE (03:16)
[2024-02-18] MEDS ORDERED: fentaNYL (PF) 50 MCG/ML 5 ML AMP ONE (03:16)
[2024-02-18] MEDS ORDERED: ROPIVACAINE 5 MG/ML 30 ML VIAL ONE (03:16)
[2024-02-18] MEDS: OXYTOCIN 30 UNITS/500 ML NS 30 UNIT in SALINE 1 500ML.BAG IV SCH (06:16)
[2024-02-18] MEDS: LIDOCAINE 0.5% (PF) 5 MG/ML (50 ML SDV) SQ PRN (10:25)
--- NOTE | 2024-02-18 11:04 | P.HPOB ---
History of Present Illness H&P Date: 02/18/24 Chief Complaint: SROM 24 year old presents at 36 weeks and 6 days with spontaneous rupture membranes at 0100. Her cervix was 4 centers dilated, 80% effaced, -2 station. She is kathryn irregularly. heart tones 135 with moderate variability and reactive. Baby has been followed for two-vessel cord and marginal cord insertion. Review of Systems All systems: negative Constitutional: Denies chills, Denies fever Eyes: denies blurred vision, denies pain Ears, nose, mouth and throat: Denies headache, Denies sore throat Cardiovascular: Denies chest pain, Denies shortness of breath Respiratory: Denies cough Gastrointestinal: Denies abdominal pain, Denies diarrhea, Denies nausea, Denies vomiting Genitourinary: Denies dysuria, Denies hematuria Musculoskeletal: Denies myalgias Integumentary: Denies pruritus, Denies rash Neurological: Denies numbness, Denies weakness Psychiatric: Denies anxiety, Denies depression Endocrine: Denies fatigue, Denies weight change Past Medical History Past Medical History: Asthma, Hypertension Additional Past Medical History / Comment(s): pre-diabetic History of Any Multi-Drug Resistant Organisms: None Reported Past Surgical History: Cholecystectomy Additional Past Surgical History / Comment(s): wisdom teeth Past Anesthesia/Blood Transfusion Reactions: Postoperative Nausea & Vomiting (PONV) Additional Past Anesthesia/Blood Transfusion Reaction / Comment(s): breathing issues Past Psychological History: Anxiety, Depression Smoking Status: Former smoker Past Alcohol Use History: None Reported Past Drug Use History: Marijuana Additional Drug Use History / Comment(s): THC before preganacy Medications and Allergies Home Medications Medication Instructions Recorded Confirmed Type Aspirin 81 mg PO DAILY 12/11/23 02/18/24 History NIFEdipine [Adalat CC] 30 mg PO DAILY 12/11/23 02/18/24 History Vit No.179/Iron/Folic 1 tab PO DAILY 12/11/23 02/18/24 History [ Tablet] Sertraline [Zoloft] 50 mg PO DAILY 12/11/23 02/18/24 History Ondansetron [Zofran] 4 mg PO Q8HR PRN 02/12/24 02/18/24 History Allergies Allergy/AdvReac Type Severity Reaction Status Date / Time tree nut [Nut] Allergy Nausea & Verified 02/18/24 02:25 Vomiting Exam Osteopathic Statement: *. No significant issues noted on an osteopathic structural exam other than those noted in the History and Physical/Consult. Vital Signs Temp Pulse Resp BP Pulse Ox 02/18/24 01:46 97.5 F L 111 H 16 134/78 97 Intake and Output 02/17/24 02/18/24 02/18/24 22:59 06:59 14:59 Output Total 400 Balance -400 Output: Urine 400 Other: # Voids 1 Weight 115.666 kg Heart: Regular rate and rhythm Lungs: Clear to auscultation bilaterally Abdomen: Soft, nontender Extremities: Negative Homans sign Results Result Diagrams: 02/18/24 02:29 Abnormal Lab Results - Last 24 Hours (Table) 02/18/24 Range/Units 02:29 WBC 15.6 H (3.8-10.6) k/uL Neutrophils # 12.6 H (1.3-7.7) k/uL Assessment and Plan (1) Spontaneous rupture of amniotic membranes Current Visit: Yes Status: Acute Code(s): DRK1935 - SNOMED Code(s): 748948177 (2) Normal labor Current Visit: Yes Status: Acute Code(s): O80 - ENCOUNTER FOR FULL-TERM UNCOMPLICATED DELIVERY; Z37.9 - OUTCOME OF DELIVERY, UNSPECIFIED SNOMED Code(s): 96948410 (3) 36 weeks gestation of Current Visit: No Status: Acute Code(s): Z3A.36 - 36 WEEKS GESTATION OF SNOMED Code(s): 49330606 (4) Marginal insertion of umbilical cord Current Visit: No Status: Acute Code(s): EUP8869 - SNOMED Code(s): 61294994 (5) Two vessel umbilical cord Current Visit: Yes Status: Acute Code(s): Q27.0 - CONGENITAL ABSENCE AND HYPOPLASIA OF UMBILICAL ARTERY SNOMED Code(s): 879491837 Plan: 1. Admit to family place 2. Pitocin augmentation if necessary 3. Anticipate normal vaginal delivery
--- NOTE | 2024-02-18 11:05 | P.PROBDLV ---
Vaginal Delivery Note - . Vaginal Delivery Note: 24 year old presents at 36 weeks and 6 days with spontaneous rupture membranes at 0100. Her cervix was 4 centers dilated, 80% effaced, -2 station. She is kathryn irregularly. heart tones 135 with moderate variability and reactive. Baby has been followed for two-vessel cord and marginal cord insertion. patient progressed slowly throughout the morning did get an epidural and was comfortable with that. Her cervix is completely dilated at 9:22 AM. She pushed, delivered a viable female infant over intact perineum under epidural anesthesia at 10:20 AM. Head delivered OA, nuchal cord 1 easily reduced, anterior shoulder delivered gentle downward guidance followed by posterior shoulder and rest of body. Nose and mouth bulb suctioned, cord clamped and cut, infant placed on mother's abdomen. Apgars 7, 9, weight 5 pounds 10.8 ounces. Placenta delivered spontaneously, intact with two-vessel cord at 1025. Vagina, cervix, perineum were inspected. 3 small lacerations were repaired with 3-0 Vicryl. Estimated blood loss 200 mL. Mother and baby in stable condition.
[2024-02-18] MEDS ORDERED: diphenhydrAMINE 25 MG CAP PO PRN (11:06)
[2024-02-18] MEDS ORDERED: ACETAMINOPHEN TAB 325 MG TAB PO PRN (11:06)
[2024-02-18] MEDS ORDERED: diphenhydrAMINE 50 MG/ML 1 ML VIAL IVP PRN ×2 (11:06)
[2024-02-18] MEDS ORDERED: HYDROCORTISONE 2.5% RECTAL CREAM 30 GM TUBE RECTAL PRN (11:06)
[2024-02-18] MEDS ORDERED: diphenhydrAMINE 50 MG CAP PO PRN (11:06)
[2024-02-18] MEDS ORDERED: BENZOCAINE/MENTHOL SPRAY 1 GM/SPRAY AEROSOL TOPICAL PRN (11:06)
[2024-02-18] MEDS ORDERED: ZOLPIDEM 5 MG TAB PO PRN (11:06)
[2024-02-18] MEDS ORDERED: LANOLIN CREAM 1 GM TUBE TOPICAL PRN (11:06)
[2024-02-18] MEDS ORDERED: SIMETHICONE 80 MG CHEWABLE PO PRN (11:06)
[2024-02-18] MEDS ORDERED: OXYTOCIN 30 UNITS/500 ML NS 30 UNIT in SALINE 1 500ML.BAG IV SCH (11:15)
[2024-02-18] MEDS: SENNOSIDES-DOCUSATE SODIUM 1 EACH TAB PO SCH (19:50)
[2024-02-18] MEDS: IBUPROFEN 600 MG TAB PO PRN (23:06)
--- NOTE | 2024-02-19 05:39 | P.MSEPDOC ---
Presenting Problems - Arrival Data Date of Arrival on Unit: 02/18/24 Time of Arrival on Unit: :59 Mode of Transport: Wheelchair - Complaint OB-Reason for Admission/Chief Complaint: Rule Out SROM Comment: pt. present to triage due SROM at 0100 clear fluid, amnisure postive Medical History - Information : 2 Para: 0 Term: 0 : 0 Abortions: Spontaneous or Elective: 1 Number of Living Children: 0 - Gestational Age Gestational Age by ANIA (wks/days): 36 Weeks and 6 Days Review of Systems - Review of Systems Constitutional: No problems Breast: No problems ENT: No problems Cardiovascular: No problems Respiratory: No problems Gastrointestinal: No problems Genitourinary: No problems Musculoskeletal: No problems Neurological: No problems Skin: No problems Vital Signs - Temperature Temperature: 97.3 F Temperature Source: Oral - Pulse Pulse Oximetery Pulse Rate: 84 Pulse Assessment Method: Automatic Cuff - Respirations Respiratory Rate: 16 Oxygen Delivery Method: Room Air - Blood Pressure Right Arm Blood Pressure: 126/83 Blood Pressure Mean: 97 Blood Pressure Source: Automatic Cuff Medical Screen Scoring - Cervical Exam Dilation (cm): 3 Effacement (%): 80 Station: -2 Membranes: Ruptured - Uterine Contractions Frequency From (mins): 1 Frequency To (mins): 3 Duration From (seconds): 30 Duration To (seconds): 60 Intensity: Mild Resting: Soft to palpation - Assessment - Baby A Baseline FHR: 145 Heart Rate - NICHD Category: Category I (Normal) NST: Reactive Physician Notification - Physician Notified Physician Notified Date: 02/18/24 Physician Notified Time: Physician: Tanesha Evans New Order Received: Yes - Notification Comment Comment: admit for labor, start pit at 0500 if contractions are irregular Maternal Triage Index - Maternal Triage Index Presenting for scheduled procedure w/no complaint: No - Stat/Priority 1 Stat Priority 1: No - Urgent/Priority 2 Urgent Priority 2: Yes Provider Notified: Tanesha Evans Provider Notified Time: Criteria Met for Priority 2: SROM Disposition - Disposition OB Disposition: Admit I agree with the RN Medical Screening Exam: Yes Case reviewed; plan agreed upon as documented in EMR&OBIX.: Yes Diagnosis: ENCOUNTER FOR FULL-TERM UNCOMPLICATED DELIVERY
--- NOTE | 2024-02-19 08:16 | P.DS ---
Providers Date of admission: 02/18/24 02:07 Expected date of discharge: 02/19/24 Attending physician: Tanesha Evans Primary care physician: Stated None - Discharge Diagnosis(es) (1) Spontaneous rupture of amniotic membranes Current Visit: Yes Status: Acute (2) Two vessel umbilical cord Current Visit: Yes Status: Acute (3) 36 weeks gestation of Current Visit: No Status: Acute (4) Chronic hypertension Current Visit: No Status: Acute (5) Marginal insertion of umbilical cord Current Visit: No Status: Acute Hospital Course: This is a 24-year-old 2 now para 1 that presented to labor and delivery on 02/17 with complaints of spontaneous rupture of membranes at 4 AM. Patient noted fluid to be clear in nature. Patient did request epidural for analgesia. Patient progressed to labor to complete dilation. Patient began pushing and had a normal spontaneous vaginal delivery of a viable female infant at 1020, weight of 5 pounds 10 ounces, Apgars of 7 and 9 at 1 and 5 minutes respectively. Patient did sustain a vaginal laceration which was repaired in the usual fashion with 3-0 Vicryl. Patient has done well . She is ambulating and voiding without difficulty. She is tolerating a regular diet without nausea or vomiting. States her pain is well-controlled. She would like discharge home at 24 hours of possible. Infant is bottlefeeding Patient Condition at Discharge: Good Plan - Discharge Summary New Discharge Prescriptions: No Action NIFEdipine [Adalat CC] 30 mg PO DAILY Vit No.179/Iron/Folic [ Tablet] 1 tab PO DAILY Sertraline [Zoloft] 50 mg PO DAILY Ondansetron [Zofran] 4 mg PO Q8HR PRN PRN Reason: Nausea Aspirin 81 mg PO DAILY Discharge Medication List Aspirin 81 mg PO DAILY 12/11/23 [History] NIFEdipine [Adalat CC] 30 mg PO DAILY 12/11/23 [History] Vit No.179/Iron/Folic [ Tablet] 1 tab PO DAILY 12/11/23 [History] Sertraline [Zoloft] 50 mg PO DAILY 12/11/23 [History] Ondansetron [Zofran] 4 mg PO Q8HR PRN 02/12/24 [History] Follow up Appointment(s)/Referral(s): Tremp,Maisha S, DO [Doctor of Osteopathic Medicine] - 1 Week Patient Instructions/Handouts: Vaginal Delivery (GEN), Vaginal Delivery (DC) Activity/Diet/Wound Care/Special Instructions: No intercourse, tampons or douching. No heavy lifting greater than a gallon of milk. No driving for two weeks. Call with any fever, shakes or chills, with any pain not alleviated by over the counter meds, or with any quesions or concerns. [id number] ibuprofen 600 mg or 3 tablets every 6 hours as needed for pain. Patient is return the office in 1 week for blood pressure check. Discharge Disposition: HOME SELF-CARE
[2024-02-19 08:33] LABS: Basophils % (A) 0 %; Eosinophils # (A) 0.2 k/uL (0-0.7); Eosinophils % (A) 1 %; HCT 31.4 % (34.0-46.0); HGB 10.4 gm/dL (11.4-16.0); Lymphocytes # (A) 2.6 k/uL (1.0-4.8); Lymphocytes % (A) 16 %; MCH 28.8 pg (25.0-35.0); MCV 87.4 fL (80.0-100.0); Mean Platelet Volume 8.7; Monocytes # (A) 0.6 k/uL (0-1.0); Monocytes % (A) 3 %; Neutrophils % (A) 78 %; Platelet Count 238 k/uL (150-450); RBC 3.59 m/uL (3.80-5.40); RDW 14.5 % (11.5-15.5); WBC 16.6 k/uL (3.8-10.6)
[2024-02-19] MEDS: NIFEdipine XL 30 MG TAB.ER.24 PO SCH (08:42)
[2024-02-19 08:45] VITALS: RESP 18
[2024-02-19] MEDS: SERTRALINE 50 MG TAB PO SCH (08:47)
[2024-02-19 15:56] VITALS: BP 135/89; PULSE 91; TEMP 98.1
== END 2024-02-19 16:30 | disposition home or self-care (01) | DRG 807 ==
LOC: FBPOP 01:43 → 4FBP 02:07
PROVIDERS: ADMIT Obstetrics & Gynecology; ATTEND Obstetrics & Gynecology
PROC: 10E0XZZ Delivery of Products of Conception, External Approach (ICD-10-PCS; principal; 2024-02-18)
PROC: 0HQ9XZZ Repair Perineum Skin, External Approach (ICD-10-PCS; 2024-02-18)
DX: O42.013 Preterm premature rupture of membranes, onset of labor within 24 hours of rupture, third trimester (principal); Z37.0 Single live birth; Z3A.36 36 weeks gestation of pregnancy; O43.193 Other malformation of placenta, third trimester; O70.0 First degree perineal laceration during delivery; O16.4 Unspecified maternal hypertension, complicating childbirth; O69.82X0 Labor and delivery complicated by other cord entanglement, without compression, not applicable or unspecified; F32.A Depression, unspecified; F41.9 Anxiety disorder, unspecified; J45.909 Unspecified asthma, uncomplicated; O99.344 Other mental disorders complicating childbirth; O99.52 Diseases of the respiratory system complicating childbirth; Z79.82 Long term (current) use of aspirin; Z79.899 Other long term (current) drug therapy; Z87.891 Personal history of nicotine dependence
CPT/HCPCS: 59025; 84112; 85025; 86850; 86900; 86901; 88307; 99213